=== PATIENT | female | born 1995 | race Caucasian/White ===

== ENCOUNTER → 2017-06-24 | Outpatient (CLI) | payer MEDICAID ==
[~2017-06-24] MED LIST: BACTRIM DS 8001 TA1 PO; BACTRIM DS 8001 TAB PO; IBU800 MG PO; KEFLEX 500MG.500 MG PO; KEFLEX500 M1 PO; MOTRIN400 MG PO; NOMEDS XX
[2017-06-24 11:25] LABS: HEMOGLOBIN 13.4 g/dL (12.2-16.2); LYMPH # 2.3 K/mm3 (0.7-4.5); LYMPH % 22.9 % (10-50.0)
[2017-06-24 12:44] LABS: ABO BLOOD TYPE A
[2017-06-24 12:45] LABS: RH BLOOD TYPE POSITIVE
[2017-06-24 17:52] LABS: AMPHETAMINES/METAMPHETAMINES NEGATIVE ng/mL (<1000)
[2017-06-25 08:42] LABS: HIV Screen 4th Generation wRfx Non Reactive (Non Reactive); Rapid Plasma Reagin, Quant Non Reactive (NonRea<1:1); Rubella Antibodies, IgG 4.96 index (Immune >0.99)
[2017-06-25 09:37] LABS: HBsAg Screen Negative (Negative)
[2017-06-27 03:37] LABS: Lead, Blood (Adult) None Detected ug/dL (0-19)
== END ==
LOC: LAB 10:35
PROVIDERS: Obstetrics & Gynecology
DX: Z36 Encounter for antenatal screening of mother (principal); Z34.01 Encounter for supervision of normal first pregnancy, first trimester; Z77.011 Contact with and (suspected) exposure to lead; Z04.8 Encounter for examination and observation for other specified reasons
CPT/HCPCS: G0432

== ENCOUNTER 2017-08-17 22:37 | Emergency (ER) | payer MEDICAID ==
[~2017-08-17] VITALS: Ht 171.4 cm; Wt 104.3 kg
[2017-08-17 23:12] LABS: URINE BILIRUBIN - DIPSTICK NEGATIVE (NEG); URINE BLOOD NEGATIVE (NEG)
--- NOTE | 2017-08-17 23:55 | Emergency Room Report ---
History of Present Illness Time Seen by [id number] Presenting Problem in Triage Pt arrived:Walked Presenting Problem:C/O SEVERE ABDOMINAL PAIN X 1 WEEK. PATIENT IS 19 WEEKS WITH TWINS NOW STATES SHE HASNT FELT ANY MOVEMENT FOR 3-4 DAYS. NOW WITH C/O BACK PAIN ONLY AND NO BLEEDING /DISCHARGE Onset of symptoms date/time:/ or onset unknown for:MEDICAL HX UNKNOWN Treatment Prior to Arrival: [employer] Provided by: Sepsis Risk Assessment: Temp: 98.8 B/P: 130/76 MAP: 93 Pulse: 105 Resp: 16 Recent fever? N Clinical Suspician of Infection? N Mental Status: 1 - Regular (Normal Baseline) Sepsis Risk:Possible Sepsis Risk Have you (or family members/close friends) recently traveled outside the [place]? N If Yes, where/when: Have you had exposure to infectious disease within the past month? N TB? Other? Specify: Source patient, RN notes reviewed, family, old records Exam Limitations no limitations Comment pt with abd pain earlier in week but dec at this time - she has no mov reported over the last few days but no fever or vomiting and no vag bleeding Cardiac Chest Pain Chest pain indicative of cardiac No Timing/Duration this evening Severity moderate ALLERGIES Coded Allergies: No Known Allergies (07/16/16) Home Medications Reported Medications No Home Medications (NO HOME MEDICATIONS) 1 EACH XX ONCE MULTIVIT-MIN W/FE-FA ( Multivitamin Tablet) 1 TAB PO DAILY History Medical History General CAD? No Angina: No IN: No Hypertension? Yes Hyperlipidemia? No CHF? No DVT? No PE? No COPD? No Asthma? Yes Anemia? No GERD? Yes Gastric ulcers? No GI Bleed? No Hernia? No Thyroid Problems? No Hypothyroidism? No CVA? No Seizures? No Diabetes? No Renal Insuffiency? No End Stage Renal Disease? No UTI? Yes Stones? No BPH? No GB Disease: No Nephritic Syndrome? No Asplenia? No Hepatitis? No Sickle Cell Disease? No Arthritis? No Migraines? No Cataracts? No Glaucoma? No MRSA? No HIV? No TB? No Anxiety? No Depression? No Cancer? No More? Yes Additional hx: BIPOLAR Immunization Hx DT/Tetanus Unknown Flu NEVER Pneumonia NEVER Surgical Hx Previous Surgery?Y TONSILLECTOMY 03/2008 [employer]ER Hx LMP 5 Months Ago Est.Due Date 01/19/[address] TAYLOR Family History Family Hx Diabetes Yes CAD Yes Hypertension Yes Hyperlipidemia Yes Cancer Yes TB No Social History Smoking Hx Smoker: Never Smoker Tobacco: No Alcohol Alcohol: No Drugs none Review of Systems All Other Systems Reviewed and Negative Constitutional denies fever Eyes denies drainage ENT denies: ear discharge, epistaxis, throat pain. Respiratory denies cough, denies shortness of breath, denies wheezing Cardiovascular denies chest pain, denies palpitations, denies syncope Gastrointestinal denies abdominal pain, denies diarrhea, denies vomiting Genitourinary see HPI. denies: abnormal vaginal bleeding, dysuria, frequency, hesitancy, hematuria. Musculoskeletal denies back pain, denies joint pain, denies joint swelling, denies neck pain Skin denies rash Psychiatric/Neurological denies headache, denies seizure Physical Exam Vital Signs Vital Signs Date Time Temp Pulse Resp B/P Pulse O2 O2 Flow FiO2 Ox Delivery Rate 08/18 0003 98.8 108 18 128/77 99 08/17 2341 105 16 130/76 99 08/17 2244 98.8 114 20 131/75 99 - WBC >12,000 or <4,000 or 10% bands? 2 or more SIRS Criteria Met? B/P:128/77 MAP:93 Creatinine >2.0? UA output<0.5ml/kg/hr for 2 hrs? Platelet count >100,000? Lactate >2.0mmol/1? INR >1.2 or PTT > than 60 sec? Evidence of Organ Dysfunction? Provider documented clinical suspician of infection? N Sepsis Criteria Count: 2 Sepsis Risk: Possible Sepsis Risk General Appearance no apparent distress Eye Exam - bilateral eye PERRL, bilateral eye EOMI Ear, Nose, Throat normal ENT inspection Neck supple Respiratory Status No: respiratory distress. Lung Sounds bilateral: lungs clear. Cardiovascular regular rate/rhythm, no murmur Peripheral Pulses Pulses normal Yes Gastrointestinal soft Extremities normal inspection Strength 4 Upper Ext (L), 4 Upper Ext (R), 4 Lower Ext (L), 4 Lower Ext (R) Neurologic alert, supervisor picking crew II-XII nml as tested, no motor/sensory deficits Reflexes Reflexes normal No Mental status normal mood/affect Skin intact Medical Decision Making LABS/Meds/Orders Pt receiving controlled substance in ED? No Results/Orders Laboratory Tests 08/17/17 2300: Urine Color YELLOW, Urine Appearance SL CLOUDY, Urine pH 6.0, Ur Specific [place] >= 1.030, Urine Protein NEGATIVE, Urine Ketones TRACE H, Urine Blood NEGATIVE, Urine Nitrate NEGATIVE, Urine Bilirubin NEGATIVE, Urine Urobilinogen 1.0, Ur Leukocyte Esterase NEGATIVE, Urine WBC OCC, Ur Squamous Epith Cells 10- 20, Urine Mucus 4+, Urine Glucose TRACE H Orders Procedure Date/time Status URINALYSIS/COMPLETE 08/17 2256 Complete Departure Departure Time of Disposition 2352 Disposition DC Home or Self Care(routine) Clinical Impression Primary Impression: Qualifiers: Weeks of gestation: 17 weeks Qualified Code: Z3A.17 - 17 weeks gestation of Condition STABLE Referrals Manish KIRKLAND,Arian Gerber discussed with dr james Patient Instructions DI for -- Discomforts and Remedies Additional Instructions see pcp for follow up Discharge Counseling Counseled pt/family regarding diagnosis, test results, follow up needs ED Critical Care Critical Care No at 0025
--- NOTE | 2017-08-17 23:55 | Emergency Room Report ---
History of Present Illness Time Seen by [id number] Presenting Problem in Triage Pt arrived:Walked Presenting Problem:C/O SEVERE ABDOMINAL PAIN X 1 WEEK. PATIENT IS 19 WEEKS WITH TWINS NOW STATES SHE HASNT FELT ANY MOVEMENT FOR 3-4 DAYS. NOW WITH C/O BACK PAIN ONLY AND NO BLEEDING /DISCHARGE Onset of symptoms date/time:/ or onset unknown for:MEDICAL HX UNKNOWN Treatment Prior to Arrival: [employer] Provided by: Sepsis Risk Assessment: Temp: 98.8 B/P: 130/76 MAP: 93 Pulse: 105 Resp: 16 Recent fever? N Clinical Suspician of Infection? N Mental Status: 1 - Regular (Normal Baseline) Sepsis Risk:Possible Sepsis Risk Have you (or family members/close friends) recently traveled outside the [place]? N If Yes, where/when: Have you had exposure to infectious disease within the past month? N TB? Other? Specify: Source patient, RN notes reviewed, family, old records Exam Limitations no limitations Comment pt with abd pain earlier in week but dec at this time - she has no mov reported over the last few days but no fever or vomiting and no vag bleeding Cardiac Chest Pain Chest pain indicative of cardiac No Timing/Duration this evening Severity moderate ALLERGIES Coded Allergies: No Known Allergies (07/16/16) Home Medications Reported Medications No Home Medications (NO HOME MEDICATIONS) 1 EACH XX ONCE MULTIVIT-MIN W/FE-FA ( Multivitamin Tablet) 1 TAB PO DAILY History Medical History General CAD? No Angina: No NC: No Hypertension? Yes Hyperlipidemia? No CHF? No DVT? No PE? No COPD? No Asthma? Yes Anemia? No GERD? Yes Gastric ulcers? No GI Bleed? No Hernia? No Thyroid Problems? No Hypothyroidism? No CVA? No Seizures? No Diabetes? No Renal Insuffiency? No End Stage Renal Disease? No UTI? Yes Stones? No BPH? No GB Disease: No Nephritic Syndrome? No Asplenia? No Hepatitis? No Sickle Cell Disease? No Arthritis? No Migraines? No Cataracts? No Glaucoma? No MRSA? No HIV? No TB? No Anxiety? No Depression? No Cancer? No More? Yes Additional hx: BIPOLAR Immunization Hx DT/Tetanus Unknown Flu NEVER Pneumonia NEVER Surgical Hx Previous Surgery?Y TONSILLECTOMY 03/2008 [employer] Hx LMP 5 Months Ago Est.Due Date 01/19/[address] TAYLOR Family History Family Hx Diabetes Yes CAD Yes Hypertension Yes Hyperlipidemia Yes Cancer Yes TB No Social History Smoking Hx Smoker: Never Smoker Tobacco: No Alcohol Alcohol: No Drugs none Review of Systems All Other Systems Reviewed and Negative Constitutional denies fever Eyes denies drainage ENT denies: ear discharge, epistaxis, throat pain. Respiratory denies cough, denies shortness of breath, denies wheezing Cardiovascular denies chest pain, denies palpitations, denies syncope Gastrointestinal denies abdominal pain, denies diarrhea, denies vomiting Genitourinary see HPI. denies: abnormal vaginal bleeding, dysuria, frequency, hesitancy, hematuria. Musculoskeletal denies back pain, denies joint pain, denies joint swelling, denies neck pain Skin denies rash Psychiatric/Neurological denies headache, denies seizure Physical Exam Vital Signs Vital Signs Date Time Temp Pulse Resp B/P Pulse O2 O2 Flow FiO2 Ox Delivery Rate 08/18 0003 98.8 108 18 128/77 99 08/17 2341 105 16 130/76 99 08/17 2244 98.8 114 20 131/75 99 - WBC >12,000 or <4,000 or 10% bands? 2 or more SIRS Criteria Met? B/P:128/77 MAP:93 Creatinine >2.0? UA output<0.5ml/kg/hr for 2 hrs? Platelet count >100,000? Lactate >2.0mmol/1? INR >1.2 or PTT > than 60 sec? Evidence of Organ Dysfunction? Provider documented clinical suspician of infection? N Sepsis Criteria Count: 2 Sepsis Risk: Possible Sepsis Risk General Appearance no apparent distress Eye Exam - bilateral eye PERRL, bilateral eye EOMI Ear, Nose, Throat normal ENT inspection Neck supple Respiratory Status No: respiratory distress. Lung Sounds bilateral: lungs clear. Cardiovascular regular rate/rhythm, no murmur Peripheral Pulses Pulses normal Yes Gastrointestinal soft Extremities normal inspection Strength 4 Upper Ext (L), 4 Upper Ext (R), 4 Lower Ext (L), 4 Lower Ext (R) Neurologic alert, draw tender II-XII nml as tested, no motor/sensory deficits Reflexes Reflexes normal No Mental status normal mood/affect Skin intact Medical Decision Making LABS/Meds/Orders Pt receiving controlled substance in ED? No Results/Orders Laboratory Tests 08/17/17 2300: Urine Color YELLOW, Urine Appearance SL CLOUDY, Urine pH 6.0, Ur Specific [place] >= 1.030, Urine Protein NEGATIVE, Urine Ketones TRACE H, Urine Blood NEGATIVE, Urine Nitrate NEGATIVE, Urine Bilirubin NEGATIVE, Urine Urobilinogen 1.0, Ur Leukocyte Esterase NEGATIVE, Urine WBC OCC, Ur Squamous Epith Cells 10- 20, Urine Mucus 4+, Urine Glucose TRACE H Orders Procedure Date/time Status URINALYSIS/COMPLETE 08/17 2256 Complete Departure Departure Time of Disposition 2352 Disposition DC Home or Self Care(routine) Clinical Impression Primary Impression: Qualifiers: Weeks of gestation: 17 weeks Qualified Code: Z3A.17 - 17 weeks gestation of Condition STABLE Referrals Manish KIRKLAND,Arian Gerber discussed with dr james Patient Instructions DI for -- Discomforts and Remedies Additional Instructions see pcp for follow up Discharge Counseling Counseled pt/family regarding diagnosis, test results, follow up needs ED Critical Care Critical Care No at 0025
[2017-08-18 00:36] VITALS: BP 128/77
--- OUTSIDE RECORDS SUMMARY | 2017-09-10 01:33 | External Medical Summary Rpt ---
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 [facility] INC INC QUANTTATI VE COLONY COUNT URINE BASIC 26641 ARSH CABAN METABOLIC 7 [facility] PANEL INC INC CALCIUM TOTAL URINE 88535 [facility] DEPT VISUAL GLORIA GLORIA COLOR CMPRSN METHS BASIC 74787 [facility] METABOLIC 5 DIAGNOSTI DIAGNOSTI PANEL CS CS CALCIUM TOTAL GLUCOSE 22475 A C [place] QUANTITAT 5 LEONA BEAVER DONALD BLOOD PSC XCPT REAGENT STRIP IRON 10042 [facility] BINDING 5 DIAGNOSTI [place] [address] [facility] IRON 5 [place] [address] [facility] THYROID 5 DIAGNOSTI DIAGNOSTI STIMULATI CS NG HORMONE TSH TRANSFERA 40862 A C [place] SE 5 [facility] [place] JEA ASPARTATE PSC AMINO AST SGOT TRANSFERA 37453 A C A C SE 5 LEONA DELGADILLO MD ALANINE PSC PSC AMINO ALT SGPT OPHTH 58102 [facility] 5 ANG ANG XM&EVAL COMPRE NEW PT 1/> VST RADEX 43927 [place] [facility] 5 MEDICAL LUPE MINIMUM 2 IMAGING VIEWS ASS SMPL 93308 [facility] GUTIERREZ, REPAIR 5 [facility] SCALP/[facility] K/AX/CARLOS P T/TRUNK 2.6-7.5CM IM ADM 91362 [facility]AN PRQ ID 5 [facility] SUBQ/IM INC INC NJXS 1 VACCINE TDAP 07010 [facility] VACCINE 7 5 [facility] YRS/> IM INC INC IAADIADOO 67448 [facility] VERNELL 3 INFLUENZA ECG 70876 CRAWFORD AMINTA CRAWFORD AMINTA ROUTINE 2 ECG W/LEAST 12 LDS I&R ONLY SPMTRY 61490 RONY RONY W/VC 2 AMARIS AMARIS EXPIRATOR Y MOE W/WO MXML VOL VNTJ COLLECTIO 60894 [facility] N VENOUS 2 BLOOD VENIPUNCT URE GLUC BLD 98104 [facility] GLUC MNTR 2 DEV CLEARED FDA SPEC HOME USE DEMO&/CHELSI 31987 RONY RONY L OF PT 1 AMARIS AMARIS UTILIZ AERSL GEN/NEB/I NHLR/IP BRNCDILAT 75769 RONY RONY RSPSE 1 AMARIS AMARIS SPMTRY PRE&POST- BRNCDILAT ADMN LEVALBUTE J7614 RONY RONY ROL INHAL 1 AMARIS AMARIS NON-CP THRU DME U DOSE 0.5 MG SPMTRY 78287 RONY RONY W/VC 1 AMARIS AMARIS EXPIRATOR Y MOE W/WO MXML VOL VNTJ BRNCDILAT 33665 RONY RONY RSPSE 1 AMARIS AMARIS SPMTRY PRE&POST- BRNCDILAT ADMN PERCUTANE 85323 RONY RONY OUS TESTS 1 AMARIS AMARIS W/ALLERGE ALESIA EXTRACTS INTRACUTA 23282 RONY RONY NEOUS 1 AMARIS AMARIS TESTS W/ALLERGE [place]ESIA EXTRACTS DEMO&/CHELSI 42212 RONY RONY L OF PT 1 AMARIS AMARIS UTILIZ AERSL GEN/NEB/I NHLR/IP URINLS 74457 A C LEONA A DIP 1 [place] STICK/TAB PSC LET REAGNT NON-AUTO MICRSCPY THERAPEUT 03706 [facility]SH [facility] IC PX 1/> 0 [facility] AREAS INC INC EACH 15 MIN EXERCISES THERAPEUT 49952 ARSH CAB[facility] IC PX 1/> 0 [facility] AREAS INC INC EACH 15 MIN EXERCISES APPLICATI 14857 [facility] ON 0 [facility] MODALITY INC INC 1/> AREAS HOT/COLD PACKS APPL 84316 [facility] CAB[facility] MODALITY 0 [facility] 1/> AREAS INC INC ELEC STIMJ UNATTENDE D APPLICATI 17623 [facility] ON 0 [facility] MODALITY INC INC 1/> AREAS HOT/COLD PACKS THERAPEUT 05469 ARSH CABAN IC PX 1/> 0 [facility] AREAS INC INC EACH 15 MIN EXERCISES THERAPEUT 45228 ARSH AMERITOX IC PX 1/> 0 [facility] INC AREAS INC EACH 15 MIN EXERCISES APPLICATI 89588 [facility] CABAN ON 0 [facility] MODALITY INC INC 1/> AREAS HOT/COLD PACKS APPL 69016 ARSH AMERITOX MODALITY 0 [facility] INC 1/> AREAS INC ELEC STIMJ UNATTENDE D APPL 87037 [facility]SH CABAN MODALITY 0 [facility] 1/> AREAS INC INC ELEC STIMJ UNATTENDE D APPLICATI 88327 ARSH CABAN ON 0 [facility] MODALITY INC INC 1/> AREAS HOT/COLD PACKS THERAPEUT 75612 ARSH GARAY IC PX 1/> 0 [facility] INC AREAS INC EACH 15 MIN EXERCISES THERAPEUT 05352 ARSH CABAN IC PX 1/> 0 [facility] AREAS INC INC EACH 15 MIN EXERCISES APPLICATI 36000 [facility]SH CABAN ON 0 [facility] MODALITY INC INC 1/> AREAS HOT/COLD PACKS APPL 90437 ARSH CABAN MODALITY 0 [facility] 1/> AREAS INC INC ELEC STIMJ UNATTENDE D APPL 65386 ARSH CABAN MODALITY 0 [facility] 1/> AREAS INC INC ELEC STIMJ UNATTENDE D APPLICATI 01374 ARSH CABAN ON 0 [facility] MODALITY INC INC 1/> AREAS HOT/COLD PACKS THERAPEUT 88758 ARSH CABAN IC PX 1/> 0 [facility] AREAS INC INC EACH 15 MIN EXERCISES THERAPEUT 90298 ARSH CABAN IC PX 1/> 0 [facility] AREAS INC INC EACH 15 MIN EXERCISES APPLICATI 31354 [facility]SH CABAN ON 0 [facility] MODALITY INC INC 1/> AREAS HOT/COLD PACKS APPL 16653 ARSH CABAN MODALITY 0 [facility] 1/> AREAS INC INC ELEC STIMJ UNATTENDE D APPL 27197 ARSH CABAN MODALITY 0 [facility] 1/> AREAS INC INC ELEC STIMJ UNATTENDE D APPLICATI 53002 ARSH CABAN ON 0 [facility] MODALITY INC INC 1/> AREAS HOT/COLD PACKS THERAPEUT 26083 ARSH CABAN IC PX 1/> 0 [facility] AREAS INC INC [place]ACH [place] [address] ARSH CABAN 1/> AREAS 0 [facility] EACH 15 INC INC MIN NEUROMUSC REEDUCA PHYSICAL 91281 ARSH CABAN THERAPY 0 [facility] EVALUATIO INC INC N MRI 55391 [facility], SPINAL 0 [place] BEE A CANAL ORTHOPAED LUMBAR ICS PLC W/O CONTRAST MATERIAL RADEX 92162 [facility] EMRE, SPINE 0 MEDICAL DEREJE LUMBOSACR IMAGING AL ASSOCIATE MINIMUM 4 S VIEWS SCREENING 62956 Oskar FRANCOIS TEST 0 LEONA Ortiz PURE TONE PSC AIR ONLY FRAMES V2020 THANIA KUO, PURCHASES 0 VISION LUCIO A 1 VISN V2103 THANIA KUO, PLANO 0 VISION LUCIO A TO+/-4.00 D SPHER 0.12-2.00 D CYL EA OPHTH 89864 THANIA KUO MEDICAL 0 VISION LUCIO A XM&EVAL COMPRHNSV ESTAB PT 1/> FITTING 51893 THANIA KUO SPECTACLE 0 VISION LUCIO A S XCPT APHAKIA MONOFOCAL RADIOLOGI 20471 ARSH CABAN C 8 [facility] EXAMINATI INC INC ON KNEE 1/2 VIEWS RADIOLOGI 43496 ARSH CABAN C 8 [facility] EXAMINATI INC INC ON KNEE 3 VIEWS RADEX 02353 JEFFERY GIL, SPINE 8 DON R DON R LUMBOSACR AL MINIMUM 4 VIEWS IAADIADOO 27572 JEFFERY GIL, 8 DON R DON R STREPTOCO CCUS GROUP A IV NFUS 32457 [facility]SH [facility]AN THER 8 [facility] PROPH/DX INC INC EA HR TONSILLEC 46939 MARISSA ANN TOMY 8 CLARI Villa PRIMARY/S ECONDARY AGE 12/> IV NFS 38443 ASRH CABAN THER 8 [facility] PROPH/DX INC INC 1ST >1 HR ANESTHESI 65439 Oskar BLAND 8 ANESTH OTTO Rich INTRAORAL OF THE WITH BLUEGRASS BIOPSY NOS LEVEL III 02854 PATHOLOGY PATHOLOGY SURG 8 & & PATHOLOGY CYTOLOGY CYTOLOGY LAB LAB GROSS&TONO ROSCOPIC EXAM BLOOD 65004 ARSH CABAN COUNT 8 [facility] HEMOGLOBI INC INC N BLOOD 77243 [facility]SH CABAN COUNT 8 [facility] HEMATOCRI INC INC T TONSILLEC 282 [facility]SH CABAN DISHA 8 [facility] WITHOUT INC INC ADENOIDEC DISHA OTHER 86.04 LEONARDO OLPEZ & SANDY Hogan Encounters Encounter Start End Date Code Location Performer Type Date OFFICE 82430 [facility] OUTPATIEN 7 7 PHYSICIAN T VISIT S GROUP 15 MINUTES INITIAL 17405 [facility] PREVENTIV 7 7 PHYSICIAN E S GROUP MEDICINE NEW PT AGE [id number] [facility] ARSH - 7 7 [facility] OUTPATIEN INC T EMERGENCY 53915 [facility]SH 7 7 [facility] DEPARTMEN INC T VISIT LOW/MODER SEVERITY OFFICE 59813 A C [place] OUTPATIEN 7 7 [place] T VISIT PSC 15 MINUTES OFFICE 85923 [facility] T VISIT TH DEPT TH DEPT 10 GLORIA GLORIA MINUTES OFFICE 99830 A C [place] OUTPATIEN 5 5 LEONA BEAVER T VISIT PSC 15 MINUTES OFFICE 57520 A C [place] OUTPATIEN 5 5 [facility] BEAVER T VISIT PSC 15 MINUTES OFFICE 34562 A C [place] OUTPATIEN 5 5 [facility] BEAVER T VISIT PSC 15 MINUTES OFFICE 59372 A C [place] OUTPATIEN 5 5 [facility] BEAVER T VISIT PSC 15 MINUTES EMERGENCY 48223 ARSH GUTIERREZ, 5 5 [facility] T VISIT P LOW/MODER SEVERITY HOSPITAL ARSH - 5 5 [facility] OUTPATIEN INC T EMERGENCY 06341 ARSH 5 5 [facility] MODERATE SEVERITY OFFICE 04565 A C FIELD AMB OUTPATIEN 5 5 LEONA [place] T VISIT PSC 15 MINUTES Emergency LOC MUNIZRIS (ER) 3 17:35 3 19:22 [facility] Emergency LOC MUNIZRIS (ER) 3 17:56 3 19:53 [facility] OFFICE 66436 [facility] OUTPATIEN 3 3 PHYSICIAN T VISIT S GROUP 15 MINUTES OFFICE 17237 LEONA Schmitt OUTPATIEN 3 3 T VISIT 15 MINUTES OFFICE 17729 OSMIN VERNELL OSMIN VERNELL OUTPATIEN 3 3 T VISIT 15 MINUTES OFFICE 42702 OSMIN VERNELL OSMIN [place]NE[place] OUTPATIEN 3 3 T VISIT 15 MINUTES OFFICE 48631 RONY RONY OUTPATIEN 2 2 AMARIS AMARIS T VISIT 25 MINUTES OFFICE 97820 OSMIN VERNELL OSMIN [place]NE[place] OUTPATIEN 2 2 T VISIT 15 MINUTES OFFICE 79841 KALLIE KALLIE OUTPATIEN 2 2 ANTONIA ANTONIA T NEW 20 MINUTES OFFICE 84730 OSMIN VERNELL OSMIN VERNELL OUTPATIEN 2 2 T VISIT 15 MINUTES OFFICE 89807 RONY RONY OUTPATIEN 1 2 AMARIS AMARIS T VISIT 15 MINUTES OFFICE 14570 RONY RONY OUTPATIEN 1 2 AMARIS AMARIS T VISIT 25 MINUTES OFFICE 63706 Oskar SOLORIO VERNELL OUTPATIEN 1 1 [place] T VISIT PSC 15 MINUTES OFFICE 02895 RONY RONY OUTPATIEN 1 1 AMARIS AMARIS T VISIT 15 MINUTES OFFICE 16369 RONY RONY CONSULTAT 1 1 AMARIS AMARIS ION NEW/ESTAB PATIENT 60 MIN OFFICE 69381 Oskar Schmitt OUTPATIEN 1 1 [place] T VISIT PSC 15 MINUTES OFFICE 16843 ARSH CABAN OUTPATIEN 1 1 [facility] 10 MINUTES OFFICE 38610 Oskar Schmitt OUTPATIEN 1 1 [place] T VISIT PSC 15 MINUTES OFFICE 35026 Oskar Schmitt OUTPATIEN 1 1 [place] T VISIT PSC 15 MINUTES OFFICE 93934 [facility] OUTPATIEN 1 1 [place] VISIT [facility]THOPAED [facility] MINUTES OFFICE 16883 ARSH CABAN OUTPATIEN 1 1 [facility] 15 MINUTES OFFICE 22126 ARSH CABAN OUTPATIEN 1 1 [facility] 15 MINUTES OFFICE 96246 [facility] OUTPAT[place] 0 0 [place] T VISIT ORTHOPAED [facility] MINUTES OFFICE 52192 A Angel Schmitt OUTPATIEN 0 0 [facility] T VISIT PSC 15 MINUTES HOSPITAL [facility] - 0 0 [facility] OUTPATIEN INC T OFFICE 06182 [facility], OUTPATIEN 0 0 [place] BEE A T VISIT ORTHOPAED [facility] MINUTES OFFICE 43676 [facility], CONSULTAT 0 0 [place] BEE A ION ORTHOPAED NEW/ESTAB [facility] PATIENT 60 MIN OFFICE 77560 Oskar FRANCOIS OUTPATIEN 0 0 LEONA Ortiz T VISIT PSC 15 MINUTES HOSPITAL ARSH - 0 0 [facility] OUTPATIEN INC T OFFICE 34361 Oskar FRANCOISPATIEN 0 0 LEONA Sibley NEW 30 PSC MINUTES OFFICE 22793 JEFFERY GIL OUTPATIEN 9 9 DON R DON R T VISIT 15 MINUTES HOSPITAL ARSH - 8 8 [facility] OUTPATIEN INC T EMERGENCY 52403 ARSH 8 8 [facility] INC T VISIT MODERATE SEVERITY OFFICE 28667 JEFFERY GIL OUTPATIEN 8 8 DON R DON R T VISIT 15 MINUTES OFFICE 26574 JEFFERY GIL OUTPATIEN 8 8 DON R DON R T VISIT 15 MINUTES OFFICE 89458 JEFFERY GIL OUTPATIEN 8 8 DON R DON R T VISIT 15 MINUTES EMERGENCY 74854 ARSH 8 8 [facility] T VISIT LIMITED/M [facility]OR [facility] ARSH - 8 8 [facility] OUTPATIEN INC T EMERGENCY 92685 ARSH JAWDI, 8 8 [facility] T VISIT PROF SERV LOW/MODER SEVERITY PERIODIC 25795 [facility] PREVENTIV 8 8 [facility] EST [facility] PATIENT BANK ACCT [id number] HOSPITAL ARSH - 8 8 [facility] OUTPATIEN INC T OFFICE 97750 [facility] OUTPATIEN 8 8 [facility] T VISIT [facility] 15 BANK ACCT MINUTES OFFICE 20147 MARISSA ANN OUTPATIEN 8 8 CLARI Sibley NEW 30 MINUTES OFFICE 71338 JEFFERY GIL OUTPATIEN 8 8 DON R DON R T VISIT 15 MINUTES
--- OUTSIDE RECORDS SUMMARY | 2017-09-10 01:33 | External Medical Summary Rpt ---
Author Author , FRANKY Organization FRANKY Address Unknown Phone [email or web address] Care Team Providers Care Store Assistant Name Role Phone A Angel DELGADILLO MD PSC, A Unavailable Unavailable Angel DELGADILLO MD PSC [employer] [facility], Unavailable Unavailable [employer] [facility] Unavailable Unavailable LABORATORIES, [facility] Unavailable Unavailable LABORATORIES, [facility] RANGEL, RANGEL Unavailable Unavailable [facility] CRAWFORD AMINTA, CRAWFORD AMINTA Unavailable Unavailable CRAWFORD AMINTA, CRAWFORD AMINTA Unavailable Unavailable EMRE LUPE, Unavailable Unavailable EMRE LUPE LALO ANDREALAS, Unavailable Unavailable EMRE, DEREJE [facility] [place], [facility] [place] [facility] [place] KALLIE ANTONIA, Unavailable Unavailable KALLIE ANTONIA KALLIE ANTONIA, Unavailable Unavailable KALLIE ANTONIA FIELD AMB, FIELD AMB Unavailable Unavailable JR IGOR GUTIERREZZ, Unavailable Unavailable JR GAYLE GUTIERREZ HARPEL, HARPEL Unavailable Unavailable [facility] Unavailable Unavailable [facility], [facility] Unavailable Unavailable [facility], [facility] Unavailable [facility]available [facility], [facility] Unavailable Unavailable [facility] P, [facility] CASILLAS, CASILLAS Unavailable Unavailable KUO LUCIO A, Unavailable Unavailable KUO, LUCIO A [facility], Unavailable Unavailable [facility] CRUZ TRA, CRUZ TRA Unavailable Unavailable CRUZ, BEE A, CRUZ, Unavailable Unavailable BEE A JAWDI, ASHLEY J, JAWDI, Unavailable Unavailable ASHLEY J [facility], [facility] KILPELA, KILPELA Unavailable Unavailable KILPELA JEA, KILPELA Unavailable Unavailable CLARI SOUTH, Unavailable Unavailable CLARI ANN AMARIS, Unavailable Unavailable RONY AMARIS RONY AMARIS, Unavailable Unavailable RONY AMARIS LEONARDO DELGADO MD, Unavailable Unavailable OTTO BLACKMAN MD, Unavailable Unavailable OTTO AGUILAR OSMIN VERNELL, OSMIN VERNELL Unavailable Unavailable OSMIN VERNELL, OSMIN VERNELL Unavailable Unavailable [facility] Unavailable Unavailable [facility], [facility]Y [facility] Unavailable Unavailable LAB, [...] PHARMACY #[id number] # Unavailable Unavailable [id number], [facility] # [id number] [facility] Unavailable Unavailable DEPT [facility], [facility] DEPT [facility] Unavailable Unavailable DEPT [facility] DEPT [facility] [employer] [facility] DELGADILLO A, DELGADILLO A Unavailable Unavailable DELGADILLO A, DELGADILLO A Unavailable Unavailable Oskar DELGADILLO C, LEONA, Unavailable Unavailable A C Purpose Continuity of Care Document - 01-11-2008 through 2016 Problems Code Diagnosis DOS Provider Status [id number] REGULAR 08-08-2017 SCIF[facility] ASTIGMATISM BILATERAL [id number] TWIN 07-03-[address] [facility] DICHORIONIC GROUP /DIAMNIOTIC FIRST TRI O0971 SUP HIGH 06-24-[address] [facility] RISK PREG PHYSICIANS D/T SOCIAL GROUP PROBLEMS FIRST TRI [id number] TWIN 06-24-[address] [facility] PH[facility]ANS UNSPECIFIED GROUP NUMBER OF PLACENTA [id number] ENCOUNTER 06-24-[address] [facility] FORGE PRESS OPERATOR EXAM PHYSICIANS GENERAL RTN GROUP W/O ABNORMAL FIND Z048 ENCOUNTER 06-24-2017 [facility] OBSERVATION LABORATORIE OTHER SPEC S REASONS Z3401 ENCOUNTER 06-24-2017 [facility] NORMAL LABORATORIE FIRST PREG S 1 TRIMESTER Z36 ENCOUNTER 06-24-2017 [facility] SCREENING S OF MOTHER [id number] CONTACT 06-24-[address] [facility] WITH AND PHYSICIANS SUSPECTED GROUP EXPOSURE TO LEAD [id number] OTHER SPEC 06-17-2017 [facility] COND 1ST TRIMESTER D48439 TWIN 06-17-2017 [facility] DICHORIONIC INC /DIAMNIOTIC SECOND TRI R1031 RIGHT LOWER 06-17-2017 [facility] R110 NAUSEA 05-28-2017 A Angel DELGADILLO MD [facility] Z3A01 LESS THAN 8 05-28-2017 A Angel FERNANDEZ MD [facility] GESTATION OF Z3189 ENCOUNTER 05-26-2017 [facility] FOR OTHER DISTRICT PROCREATIVE HLTH DEPT MANAGEMENT GLORIA Z3201 ENCOUNTER 05-26-2017 [facility] DEPT TEST RESULT GLORIA POSITIVE J329 CHRONIC 10-06-2015 A Angel DELGADILLO SINUSITIS [facility] UNSPECIFIED I10 ESSENTIAL 09-28-2015 A Angel DELGADILLO PRIMARY [facility] HYPERTENSIO N 7823 EDEMA 07-05-2015 [facility] 7835 POLYDIPSIA 07-05-2015 A Angel DELGADILLO MD [facility] 7847 EPISTAXIS 07-05-2015 A Angel DELGADILLO MD [facility] 51975 POLYURIA 07-05-2015 A Angel DELGADILLO MD [facility] 1109 DERMATOPHYT 06-28-2015 A Angel DELGADILLO OSIS JEROD KIRKL[place] [facility] UNSPECIFIED SITE 3671 MYOPIA 03-10-2015 SCIFRES ANG 67362 OPEN WOUND 03-04-2015 [facility]ICAL WITHOUT IMAGING ASS MENTION COMP E8498 OTHER 03-04-2015 [facility] OF HOSPITAL P OCCURRENCE E8880 FALL 03-04-2015 [facility] AGAINST SHARP OBJECT E9208 ACC CAUSED 03-04-2015 [facility] SPEC [facility] P G INSTRUM/OBJ S V065 NEED 03-04-2015 [facility] INC VACCINATION W/TETANUS-D [facility] 7061 OTHER ACNE 01-07-2015 A Angel DELGADILLO MD [facility] 7856 ENLARGEMENT 01-07-2015 A Angel MARIN [facility] NODES 682.6 682.6 08-18-2013 Arsh CELLULITIS [facility] 19506 ACUT 02-18-[address] [facility] SUPPRATV PHYSICIANS OTITIS GROUP MEDIA W/O SPONT [...] RONY RHINITIS AMARIS DUE TO OTHER ALLERGEN 78997 EXTRINSIC 06-30-2012 RONY ASTHMA, AMARIS UNSPECIFIED 0743 HAND, FOOT, 06-11-2012 [facility] DISEASE 7827 SPONTANEOUS 04-28-2012 KALLIE ECCHYMOSES ANTONIA 6264 IRREGULAR 02-04-2012 OSMIN [facility] MENSTRUAL CYCLE 7060 ACNE 02-04-2012 [facility] [place] [address] EXTRINSIC 11-14-2011 RONY ASTHMA, AMARIS WITH EXACERBATIO N 6262 EXCESSIVE 08-08-2011 A Angel DELGADILLO OR FREQUENT PSC MENSTRUATIO N 4780 HYPERTROPHY 07-22-2011 RONY OF NASAL AMARIS TURBINATES V727 DIAGNOSTIC 06-11-2011 RONY SKIN AND AMARIS SENSITIZATI ON TESTS 7821 RASH AND 05-22-2011 A Angel NATION MD PSC NONSPECIFIC SKIN ERUPTION 6253 DYSMENORRHE 03-13-2011 [facility] 1121 CANDIDIASIS 03-06-2011 A Angel DELGADILLO OF VULVA PSC AND VAGINA 36130 OTHER 03-06-2011 A Angel DELGADILLO STOMATITIS PSC AND MUCOSITIS ULCERATIVE 7242 LUMBAGO 01-22-2011 [facility]OP[facility]EDIC S PLC 7840 HEADACHE 01-16-2011 [facility] 61828 SCOLIOSIS , 10-23-2010 [facility] IDIOPATHIC ORTHOPAEDIC S PLC 4619 ACUTE 10-09-2010 A Angel DELGADILLO SINUSITISMD PSC UNSPECIFIED V571 OTHER 07-02-2010 [facility] THERAPY INC 47213 CENTRAL 06-06-2010 A Angel DELGADILLO HEARING PSC LOSS 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 [facility] SP[facility] UNSPECIFIED ASSOCIATES 7820 DISTURBANCE 06-06-2010 [facility] OF SKIN [facility] SENSATION INC 3670 HYPERMETROP 04-06-2010 THANIA IA [facility] 4779 ALLERGIC 12-26-2009 A Angel DELGADILLO RHINITIS PSC CAUSE UNSPECIFIED 4610 ACUTE 02-08-2009 BHARATHI GIL SINUSITIS 7881 DYSURIA 02-08-2009 BRIANNE GIL 22572 PAIN IN 10-25-2008 [facility]INT[facility] LOWER LEG [facility] 87750 CONTUSION 10-25-2008 [facility] [facility] E8490 PLACE OF 10-25-2008 [facility] O[facility], MEDICAL HOME [facility] E8809 ACCIDENTAL 10-25-2008 [facility] FALL ON OR MEDICAL FROM OTHER IMAGING STAIRS OR ASSOCIATES STEPS 7245 UNSPECIFIED 10-17-2008 GIL, BACKACHE DON R 462 ACUTE 07-26-2008 GIL, PHARYNGITIS DON R V202 ROUTINE 06-29-2008 GIL, OR BRIANNE R CHILD HEALTH CHECK 6918 OTHER 05-27-2008 [facility] AND RELATED PROF SERV CONDITIONS 463 ACUTE 02-25-2008 [facility] TONSILLITIS [facility] 07272 CHRONIC 02-25-2008 AYSHA ANNILLITIS CLARI Villa 18282 HYPERTROPHY 02-25-2008 PATHOLOGY & OF TONSILS CYTOLOGY ALONE LAB 24375 OTHER 02-04-2008 SRIKANTH ANN INVOLVING HEAD AND [...] NT ET HI AN A IN C VA 00 09 0 No DA 40 -1 [...] -2 -[address] 76 NT ti HI 70 2- 2- 00 SI 72 ZE [...] MG CY TA #5 BL 91 ET HI 50 06 07 00 10 10 WA [...] method CHLAMYDIA AND GONORRHEA TESTING (08-30-2014 11:00) Lepidopterist: Rosanne Pearce MD FCAP Lab: [facility] Division of Laboratory Services Lab Address: [address] [place] [address], [address] [place] [address] 08-30-2014 11:00 am Specimen Collection Start Date/Time: Ergonomics Engineer: Specimen Richardson'patricia 09-05-2014 9:37 am Date/Time: Ordering Physician: [facility] 09-06-2014 8:44 am Results Rpt/Status Change Date/Time: [...] Procedures Procedure DOS Code Location Performer Comment [facility] [address] [facility] 7 XM&EVAL COMPRHNSV ESTAB PT 1/ [place] [address] [facility] 7 PHYSICIAN UTERUS 14 S GROUP WK TRANSABDL GESTAT CULTURE [address] [facility] CHLAMYDIA 7 PHYSICIAN ANY S GROUP SOURCE IADNA 86470 BIO BIO LESLEY 7 REFERNCE REFERNCE SPECIES LABORATOR LABORATOR AMPLIFIED IES IES PROBE TQ CYTP C/V 87387 BIO BIO AUTO THIN 7 REFERNCE REFERNCE LYR LABORATOR LABORATOR PREPJ SCR IES IES MNL RESCR PHYS IADNA 33309 BIO BIO HERPES 7 REFERNCE REFERNCE SOMPLX LABORATOR LABORATOR VIRUS IES IES AMPLIFIED PROBE TQ IADNA [address] [facility] NEISSERIA 7 PHYSICIAN S GROUP GONORRHOE AE DIRECT PROBE TQ IADNA 87985 BIO BIO NEISSERIA 7 REFERNCE REFERNCE LABORATOR LABORATOR GONORRHOE IES IES AE AMPLIFIED PROBE TQ IADNA NOS 49223 BIO BIO 7 REFERNCE REFERNCE AMPLIFIED LABORATOR LABORATOR PROBE TQ IES IES EACH ORGANISM IADNA 53951 BIO BIO CHLAMYDIA 7 REFERNCE REFERNCE LABORATOR LABORATOR TRACHOMAT IES IES IS AMPLIFIED PROBE TQ IADNA 29391 BIO BIO GARDNEREL 7 REFERNCE REFERNCE LA LABORATOR LABORATOR VAGINALIS IES IES QUANTIFIC ATION IADNA [address] [facility] HERPES 7 PHYSICIAN SIMPLX S GROUP VIRUS DIRECT PROBE TQ URINLS [address] [facility] CASILLAS DIP 7 PHYSICIAN STICK/TAB S GROUP LET REAGNT NON-AUTO MICRSCPY IADNA 79910 BIO BIO TRICHOMON 7 REFERNCE REFERNCE LABORATOR LABORATOR VAGINALIS IES IES AMPLIFIED PROBE TECH IADNA NOS 35537 BIO BIO 7 REFERNCE REFERNCE QUANTIFIC LABORATOR LABORATOR ATION IES IES EACH ORGANISM IAADIADOO [address] [facility] 7 PHYSICIAN TRICHOMON S GROUP VAGINALIS US PREG 71572 [facility] R[facility] UTERUS 7 MEDICAL REAL TIME IMAGING W/IMAGE ASS DCMTN TRANSVAG URNLS DIP 51657 [facility] 7 [facility] STICK/TAB INC INC LET REAGENT AUTO MICROSCOP Y BLOOD 58801 [facility] COUNT 7 [facility] COMPLETE INC INC AUTO&AUTO DIFRNTL WBC CULTURE 26637 [facility] BACTERIAL 7 [facility] INC INC QUANTTATI VE COLONY COUNT URINE BASIC 06531 [facility] METABOLIC 7 [facility] PANEL INC INC CALCIUM TOTAL URINE 59209 [facility] 7 [facility] TEST HLTH DEPT HLTH DEPT VISUAL GLORIA GLORIA COLOR CMPRSN METHS BASIC 27030 [facility] METABOLIC 5 DIAGNOSTI DIAGNOSTI PANEL CS CS CALCIUM TOTAL GLUCOSE 49616 A C KILPELA QUANTITAT 5 LEONA BEAVER DONALD BLOOD PSC XCPT REAGENT STRIP IRON 90221 [facility] BINDING 5 DIAGNOSTI [place] [address] [facility] IRON 5 [place] [address] [facility] THYROID 5 DIAGNOSTI DIAGNOSTI STIMULATI CS NG HORMONE TSH TRANSFERA 18116 A C KILPELA SE 5 LEONA [place]KL[place] JEA ASPARTATE PSC AMINO AST SGOT TRANSFERA 78057 A C A C SE 5 LEONA DELGADILLO MD ALANINE PSC PSC AMINO ALT SGPT OPHTH 04612 [facility] 5 ANG ANG XM&EVAL COMPRE NEW PT 1/> VST RADEX 49806 [place] EMRE HUMERUS 5 MEDICAL LUPE MINIMUM 2 IMAGING VIEWS ASS SMPL 80617 [facility] GUTIERREZ, REPAIR 5 [facility] SCALP/[facility] K/AX/CARLOS P T/TRUNK 2.6-7.5CM IM ADM 19348 [facility] PRQ ID 5 [facility] SUBQ/IM INC INC NJXS 1 VACCINE TDAP 10188 [facility] VACCINE 7 5 [facility] YRS/> IM INC INC IAADIADOO 45819 [facility] 3 INFLUENZA ECG 48808 CRAWFORD AMINTA CRAWFORD AMINTA ROUTINE 2 ECG W/LEAST 12 LDS I&R ONLY SPMTRY 55558 RONY RONY W/VC 2 AMARIS AMARIS EXPIRATOR Y MOE W/WO MXML VOL VNTJ COLLECTIO 62751 [facility] N VENOUS 2 BLOOD VENIPUNCT URE GLUC BLD 64930 [facility] GLUC MNTR 2 DEV CLEARED FDA SPEC HOME USE DEMO&/CHELSI 41848 RONY RONY L OF PT 1 AMARIS AMARIS UTILIZ AERSL GEN/NEB/I NHLR/IP BRNCDILAT 68481 RONY RONY RSPSE 1 AMARIS AMARIS SPMTRY PRE&POST- BRNCDILAT ADMN LEVALBUTE J7614 RONY RONY ROL INHAL 1 AMARIS AMARIS NON-CP THRU DME U DOSE 0.5 MG SPMTRY 56425 RONY RONY W/VC 1 AMARIS AMARIS EXPIRATOR Y MOE W/WO MXML VOL VNTJ BRNCDILAT 52973 RONY RONY RSPSE 1 AMARIS AMARIS SPMTRY PRE&POST- BRNCDILAT ADMN PERCUTANE 24622 RONY RONY OUS TESTS 1 AMARIS AMARIS W/ALLERGE ALESIA EXTRACTS INTRACUTA 98424 RONY RONY NEOUS 1 AMARIS AMARIS TESTS W/ALLERGE ALESIA EXTRACTS DEMO&/CHELSI 76508 RONY RONY L OF PT 1 AMARIS AMARIS UTILIZ AERSL GEN/NEB/I NHLR/IP URINLS 72258 A C LEONA A DIP 1 LEONA [place] STICK/TAB PSC LET REAGNT NON-AUTO MICRSCPY THERAPEUT 26158 [facility] IC PX 1/> 0 [facility] AREAS INC INC EACH 15 MIN EXERCISES THERAPEUT 12689 [facility] IC PX 1/> 0 [facility] AREAS INC INC EACH 15 MIN EXERCISES APPLICATI 20862 [facility] ON 0 [facility] MODALITY INC INC 1/> AREAS HOT/COLD PACKS APPL 99667 [facility] MODALITY 0 [facility] 1/> AREAS INC INC ELEC STIMJ UNATTENDE D APPLICATI 11019 [facility] ON 0 [facility] MODALITY INC INC 1/> AREAS HOT/COLD PACKS THERAPEUT 85728 [facility] IC PX 1/> 0 [facility] AREAS INC INC EACH 15 MIN EXERCISES THERAPEUT 15318 [facility] AMER[facility]OX IC PX 1/> 0 [facility] INC AREAS INC EACH 15 MIN EXERCISES APPLICATI 96423 [facility] ON 0 [facility] MODALITY INC INC 1/> AREAS HOT/COLD PACKS APPL 39099 [facility] MODALITY 0 [facility] INC 1/> AREAS INC ELEC STIMJ UNATTENDE D APPL 27726 [facility] MODALITY 0 [facility] 1/> AREAS INC INC ELEC STIMJ UNATTENDE D APPLICATI 22320 [facility] ON 0 [facility] MODALITY INC INC 1/> AREAS HOT/COLD PACKS THERAPEUT 67357 [facility] GARAY IC PX 1/> 0 [facility] INC AREAS INC EACH 15 MIN EXERCISES THERAPEUT 20557 [facility] IC PX 1/> 0 [facility] AREAS INC INC EACH 15 MIN EXERCISES APPLICATI 65838 [facility] ON 0 [facility] MODALITY INC INC 1/> AREAS HOT/COLD PACKS APPL 99411 [facility] MODALITY 0 [facility] 1/> AREAS INC INC ELEC STIMJ UNATTENDE D APPL 30214 [facility] MODALITY 0 [facility] 1/> AREAS INC INC ELEC STIMJ UNATTENDE D APPLICATI 46144 [facility] ON 0 [facility] MODALITY INC INC 1/> AREAS HOT/COLD PACKS THERAPEUT 09161 [facility] IC PX 1/> 0 [facility] AREAS INC INC EACH 15 MIN EXERCISES THERAPEUT 31915 [facility] IC PX 1/> 0 [facility] AREAS INC INC EACH 15 MIN EXERCISES APPLICATI 66325 [facility] ON 0 [facility] MODALITY INC INC 1/> AREAS HOT/COLD PACKS APPL 15777 [facility] MODALITY 0 [facility] 1/> AREAS INC INC ELEC STIMJ UNATTENDE D APPL 50227 [facility] MODALITY 0 [facility] 1/> AREAS INC INC ELEC STIMJ UNATTENDE D APPLICATI 89737 [facility] ON 0 [facility] MODALITY INC INC 1/> AREAS HOT/COLD PACKS THERAPEUT 13397 [facility] IC PX 1/> 0 [facility] AREAS INC INC [place]ACH [place] [address] [facility] 1/> AREAS 0 [facility] EACH 15 INC INC MIN NEUROMUSC REEDUCA PHYSICAL 45944 [facility] THERAPY 0 [facility] EVALUATIO INC INC N MRI 73359 [facility], SPINAL 0 [place] BEE A CANAL ORTHOPAED LUMBAR ICS PLC W/O CONTRAST MATERIAL RADEX 40565 [facility] EMRE, SPINE 0 MEDICAL DEREJE LUMBOSACR IMAGING AL ASSOCIATE MINIMUM 4 S VIEWS SCREENING 30901 Oskar FRANCOIS TEST 0 LEONA Ortiz PURE TONE PSC AIR ONLY FRAMES V2020 THANIA KUO, PURCHASES 0 VISION LUCIO A 1 VISN V2103 THANIA KUO, PLANO 0 VISION LUCIO A TO+/-4.00 D SPHER 0.12-2.00 D CYL EA OPHTH 38656 THANIA KUO MEDICAL 0 VISION LUCIO A XM&EVAL COMPRHNSV ESTAB PT 1/> FITTING 99693 THANIA KUO SPECTACLE 0 VISION LUCIO A S XCPT APHAKIA MONOFOCAL RADIOLOGI 38723 [facility] C 8 [facility] EXAMINATI INC INC ON KNEE 1/2 VIEWS RADIOLOGI 85555 [facility] C 8 [facility] EXAMINATI INC INC ON KNEE 3 VIEWS RADEX 82184 JEFFERY GIL, SPINE 8 DON R DON R LUMBOSACR AL MINIMUM 4 VIEWS IAADIADOO 84061 JEFFERY GIL, 8 DON R DON R STREPTOCO CCUS GROUP A IV NFUS 76611 [facility] THER 8 [facility] PROPH/DX INC INC EA HR TONSILLEC 11334 MARISSA ANN TOMY 8 CLARI Villa PRIMARY/S ECONDARY AGE 12/> IV NFS 59528 [facility] THER 8 [facility] PROPH/DX INC INC 1ST >1 HR ANESTHESI 53036 Oskar BLAND 8 ANESTH OTTO Rich INTRAORAL OF THE WITH BLUEGRASS BIOPSY NOS LEVEL III 39410 PATHOLOGY PATHOLOGY SURG 8 & & PATHOLOGY CYTOLOGY CYTOLOGY LAB LAB GROSS&TONO ROSCOPIC EXAM BLOOD 55491 [facility] COUNT 8 [facility] HEMOGLOBI INC INC N BLOOD 08507 [facility] COUNT 8 [facility] HEMATOCRI INC INC T TONSILLEC 282 [facility] DISHA 8 [facility] WITHOUT INC INC ADENOIDEC DISHA OTHER 86.04 LEONARDO LOPEZ & SANDY Hogan Encounters Encounter Start End Date Code Location Performer Type Date OFFICE [address] [facility] OUTPATIEN 7 7 PHYSICIAN T VISIT S GROUP 15 MINUTES INITIAL [address] [facility] PREVENTIV 7 7 PHYSICIAN E S GROUP MEDICINE NEW PT AGE 18-39YRS [facility] - 7 7 [facility] OUTPATIEN INC T EMERGENCY 14570 [facility] 7 7 [facility] DEPARTMEN INC T VISIT LOW/MODER SEVERITY OFFICE 48220 A C KILPELA OUTPATIEN 7 7 LEONA [place] T VISIT PSC 15 MINUTES OFFICE 25024 [facility] T VISIT TH DEPT TH DEPT 10 GLORIA GLORIA MINUTES OFFICE 97195 A C KILPELA OUTPATIEN 5 5 LEONA BEAVER T VISIT PSC 15 MINUTES OFFICE 75182 A C KILPELA OUTPATIEN 5 5 LEONA BEAVER T VISIT PSC 15 MINUTES OFFICE 83794 A C KILPELA OUTPATIEN 5 5 LEONA BEAVER T VISIT PSC 15 MINUTES OFFICE 70685 A C KILPELA OUTPATIEN 5 5 LEONA BEAVER T VISIT PSC 15 MINUTES EMERGENCY 31413 [facility] GUTIERREZ, 5 5 [facility] T VISIT P LOW/MODER SEVERITY HOSPITAL [facility] - 5 5 [facility] OUTPATIEN INC T EMERGENCY 73787 [facility] 5 5 [facility]IT MODERATE SEVERITY OFFICE 57458 A C FIELD AMB OUTPATIEN 5 5 LEONA KIRKLAND T VISIT PSC 15 MINUTES Emergency LOC MUNIZRIS (ER) 3 17:35 3 19:22 [facility] Emergency LOC MUNIZRIS (ER) 3 17:56 3 19:53 [facility] OFFICE [address] [facility] OUTPATIEN 3 3 PHYSICIAN T VISIT S GROUP 15 MINUTES OFFICE 40257 LEONA Schmitt OUTPATIEN 3 3 T VISIT 15 MINUTES OFFICE 46808 [facility] OUTPATIEN 3 3 T VISIT 15 MINUTES OFFICE 17998 [facility] VERNE[facility] OSMIN VERNELL OUTPATIEN 3 3 T VISIT 15 MINUTES OFFICE 75288 RONY RONY OUTPATIEN 2 2 AMARIS AMARIS T VISIT 25 MINUTES OFFICE 08097 [facility] OUTPATIEN 2 2 T VISIT 15 MINUTES OFFICE 39380 KALLIE KALLIE OUTPATIEN 2 2 ANTONIA ANTONIA T NEW 20 MINUTES OFFICE 69637 [facility] OUTPATIEN 2 2 T VISIT 15 MINUTES OFFICE 20440 RONY RONY OUTPATIEN 1 2 AMARIS AMARIS T VISIT 15 MINUTES OFFICE 27272 RONY RONY OUTPATIEN 1 2 AMARIS AMARIS T VISIT 25 MINUTES OFFICE 71532 Oskar SOLORIO VERNELL OUTPATIEN 1 1 LEONA [place] T VISIT PSC 15 MINUTES OFFICE 10687 RONY RONY OUTPATIEN 1 1 AMARIS AMARIS T VISIT 15 MINUTES OFFICE 24850 RONY RONY CONSULTAT 1 1 AMARIS AMARIS ION NEW/ESTAB PATIENT 60 MIN OFFICE 50672 Oskar Schmitt OUTPATIEN 1 1 LEONA [place] T VISIT PSC 15 MINUTES OFFICE 88386 [facility] OUTPATIEN 1 1 [facility] 10 MINUTES OFFICE 86788 [facility] Schmitt OUTPATIEN 1 1 LEONA [place] T VISIT PSC 15 MINUTES OFFICE 85758 Oskar Schmitt OUTPATIEN 1 1 LEONA [place] T VISIT PSC 15 MINUTES OFFICE 33117 [facility] OUTPAT[place] 1 1 [place] T VISIT [facility]OP[facility]ED 15 [facility] MINUTES OFFICE 88035 [facility] OUTPATIEN 1 1 [facility] 15 MINUTES OFFICE 46525 [facility] OUTPATIEN 1 1 [facility] 15 MINUTES OFFICE 26543 [facility] [place] [facility] MIN[facility]ES [facility] 17616 A Angel Schmitt OUTPATIEN 0 0 [place] T VISIT P[facility] 15 MINUTES [facility] - 0 0 [facility] T OFFICE 26834 [facility], [place] 0 0 [place] T VISIT ORTHOPAED 15 [facility] MINUT[facility] OFFICE 49512 [facility], CONS[place]AT 0 0 [place] BEE [place] I[place] ORTHOPAED NEW/ESTAB [facility] PATIENT 60 MIN OFFICE 85982 Oskar FRANCOIS OUTPATIEN 0 0 [facility] [place] T VISIT PSC 15 MINUTES [facility]OSPITAL [facility] - 0 0 [facility] T OFFICE 16685 Oskar FRANCOISPATIEN 0 0 [place] NEW 30 PSC MINUTES OFFICE 00062 JEFFERY GIL OUTPATIEN 9 9 DON R DON R T VISIT 15 MINUTES HOSPITAL [facility] - 8 8 [facility] T EMERGENCY 24141 [facility]SH 8 8 [facility] T VISIT MODERATE SEVERITY OFFICE 50917 JEFFERY IGL OUTPATIEN 8 8 DON R DON R T VISIT 15 MINUTES OFFICE 79162 JEFFERY GIL OUTPATIEN 8 8 DON R DON R T VISIT 15 MINUTES OFFICE 86037 JEFFERY GIL OUTPATIEN 8 8 DON R DON R T VISIT 15 MINUTES EMERGENCY 81259 ARSH 8 8 [facility] T VISIT LIMITED/M INOR [facility] ARSH - 8 8 [facility] OUTPATIEN INC T EMERGENCY 01232 ARSH JAWDI, 8 8 [facility] T VISIT PROF SERV LOW/MODER SEVERITY PERIODIC 94836 [facility] PREVENTIV 8 8 [facility] [place] [facility] MED EST [facility] PATIENT BANK ACCT [id number] ARSH - 8 8 [facility] T OFFICE 54745 [facility] OUTPATIEN 8 8 [facility] [place] T VISIT [facility] 15 BANK ACCT MINUTES OFFICE 43793 MARISSA ANN OUTPATIEN 8 8 CLARI [place] NEW 30 MINUTES OFFICE 76801 JEFFERY GIL OUTPATIEN 8 8 DON R DON R T VISIT 15 MINUTES
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
--- OUTSIDE RECORDS SUMMARY | 2017-09-10 01:37 | External Medical Summary Rpt ---
Author Author , FRANKY Medina FRANKY Address Unknown Phone [email or web address] Team Providers Care Farmer And Grazier Name Role Phone A Angel DELGADILLO MD PSC, A Unavailable Unavailable Angel DELGADILLO MD PSC [facility] [facility], Unavailable Unavailable [employer] [facility] Unavailable Unavailable LABORATORIES, [facility] Unavailable [facility]available LABORATORIES, [facility] CRAWFORD AMITNA, CRAWFORD AMINTA Unavailable Unavailable CRAWFORD AMINTA, CRAWFORD AMINTA Unavailable Unavailable EMRE LUPE, Unavailable Unavailable EMRE LUPE EMRE, DEREJE, Unavailable Unavailable EMRE, DEREJE [facility] Unavailable Unavailable [place], [facility] [place] [facility] [place] [place] [facility] KALLIE ANTONIA, Unavailable Unavailable KALLIE ANTONIA KALLIE ANTONIA, Unavailable Unavailable KALLIE ANTONIA FIELD AMB, FIELD AMB Unavailable Unavailable JR MATT ELZ, Unavailable Unavailable JR MATT ELZ HARPEL, HARPEL Unavailable Unavailable [employer] Unavailable Un[facility], [employer] [facility] [employer] Unavailable Un[facility], [employer] [facility] Unavailable Unavailable INC, [facility] Unavailable Unavailable H[facility]PITAL P, [facility] CASILLAS, CASILLAS Unavailable Unavailable LUCIO KUO A, Unavailable Unavailable SHIELA LUCIO A [facility], Unavailable Unavailable [facility] CRUZ TRA, CRUZ TRA Unavailable Unavailable CRUZ, BEE A, CRUZ, Unavailable Unavailable BEE A JAWDI, ASHLEY J, JAWDI, Unavailable Unavailable ASHLEY J [facility] Unavailable Unavailable [facility], [facility] KILPELA, KILPELA Unavailable Unavailable KILPELA JEA, KILPELA Unavailable Unavailable CHALOA CLARI ANN, Unavailable Unavailable CLARI ANN AMARIS, Unavailable Unavailable RONY AMARIS RONY AMARIS, Unavailable Unavailable RONY OTTO HODGES, Unavailable Unavailable OTTO AGUILAR VERNELL, OSMIN VERNELL Unavailable Unavailable OSMIN VERNELL, OSMIN VERNELL Unavailable Unavailable [facility] Unavailable Unavailable [facility] Unavailable [...] [facility]ACY [facility] # Unavailable Unavailable [id number], [facility] # [id number] [facility] Unavailable Unavailable DEPT [facility], [facility] DEPT [facility] Unavailable Unavailable DEPT [facility], [facility] DEPT [facility] DELGADILLO A, DELGADILLO A Unavailable Unavailable DELGADILLO A, DELGADILLO A Unavailable Unavailable Oskar DELGADILLO WRIGHT, Unavailable Unavailable A C Purpose Continuity of Care Document - 01-11-2008 through 2016 Problems Code Diagnosis DOS Provider Status [id number] REGULAR 08-08-2017 SCIFRES ASTIGMATISM BILATERAL [id number] TWIN 07-03-2017 [facility] DICHORIONIC GROUP /DIAMNIOTIC FIRST TRI O0971 SUP HIGH 06-24-2017 [facility] RISK PREG PHYSICIANS D/T SOCIAL GROUP PROBLEMS FIRST TRI [id number] TWIN 06-24-2017 [facility] UNSPECIFIED GROUP NUMBER OF PLACENTA [id number] ENCOUNTER 06-24-2017 [facility] BRADDISHER EXAM PHYSICIANS GENERAL RTN GROUP W/O ABNORMAL FIND Z048 ENCOUNTER 06-24-2017 [facility] OBSERVATION LABORATORIE OTHER SPEC S REASONS Z3401 ENCOUNTER 06-24-2017 [facility] SUPR[facility]N [facility] NORMAL LABORATORIE FIRST PREG S 1 TRIMESTER Z36 ENCOUNTER 06-24-2017 [facility] FOR [facility] LAB[facility]ATORIE SCREENING S OF MOTHER W07384 CONTACT 06-24-2017 [facility] WITH AND PHYSICIANS SUSPECTED GROUP EXPOSURE TO LEAD [id number] OTHER SPEC 06-17-2017 [facility] COND 1ST TRIMESTER L77129 TWIN 06-17-2017 [facility] DICHORIONIC INC /DIAMNIOTIC SECOND TRI R1031 RIGHT LOWER 06-17-2017 [facility] R110 NAUSEA 05-28-2017 A Angel DELGADILLO MD PSC Z3A01 LESS THAN 8 05-28-2017 A Angel FERNANDEZ MD [facility] GESTATION OF Z3189 ENCOUNTER 05-26-2017 [facility] FOR OTHER DISTRICT PROCREATIVE [facility] DEPT MANAGEMENT GLORIA Z3201 ENCOUNTER 05-26-2017 [facility] FOR DISTRICT HLTH DEPT TEST RESULT GLORIA POSITIVE J329 CHRONIC 10-06-2015 A Angel DELGADILLO SINUSITIS [facility] UNSPECIFIED I10 ESSENTIAL 09-28-2015 A Angel DELGADILLO PRIMARY [facility] HYPERTENSIO N 7823 EDEMA 07-05-2015 [facility] 7835 POLYDIPSIA 07-05-2015 A Angel DELGADILLO MD [facility] 7847 EPISTAXIS 07-05-2015 A Angel DELGADILLO MD [facility] 00530 POLYURIA 07-05-2015 A Angel DELGADILLO MD [facility] 1109 DERMATOPHYT 06-28-2015 A Angel DELGADILLO OSIS JEROD KIRKLAND [facility] UNSPECIFIED SITE 3671 MYOPIA 03-10-2015 SCIFRES ANG 56720 OPEN WOUND 03-04-2015 [place] [facility]ICAL WITHOUT IMAGING ASS MENTION COMP E8498 OTHER 03-04-[address] [facility] PL[address] OF HOSPITAL P OCCURRENCE E8880 FALL 03-04-2015 [facility] RESULT[address] [facility] IN [facility] P AGAINST SHARP OBJECT E9208 ACC CAUSED 03-04-2015 [facility] OT SPEC [facility] P G INSTRUM/OBJ S V065 NEED 03-04-2015 [facility] PROPHYLACTI [facility] INC VACCINATION W/TETANUS-D [facility] 7061 OTHER ACNE 01-07-2015 A Angel DELGADILLO MD PSC 7856 ENLARGEMENT 01-07-2015 A Angel MARIN LYMPH [facility] NODES 44541 ACUT 02-18-2013 [facility] SUPPRATV PHYSICIANS OTITIS GROUP MEDIA W/O [...] RONY RHINITIS AMARIS DUE TO OTHER ALLERGEN 92299 EXTRINSIC 06-30-2012 RONY ASTHMA, AMARIS UNSPECIFIED 0743 HAND, FOOT, 06-11-2012 OSMIN VERNELL AND MOUTH DISEASE 7827 SPONTANEOUS 04-28-2012 KALLIE ECCHYMOSES ANTONIA 6264 IRREGULAR 02-04-2012 OSMIN MATT MENSTRUAL CYCLE 7060 ACNE 02-04-2012 [place] [address] EXTRINSIC 11-14-2011 RONY ASTHMA, AMARIS WITH EXACERBATIO N 6262 EXCESSIVE 08-08-2011 A Angel DELGADILLO OR FREQUENT PSC MENSTRUATIO N 4780 HYPERTROPHY 07-22-2011 RONY OF NASAL AMARIS TURBINATES V727 DIAGNOSTIC 06-11-2011 RONY SKIN AND AMARIS SENSITIZATI ON TESTS 7821 RASH AND 05-22-2011 A Angel NATION MD PSC NONSPECIFIC SKIN ERUPTION 6253 DYSMENORRHE 03-13-2011 [facility] 1121 CANDIDIASIS 03-06-2011 A Angel DELGADILLO OF VULVA PSC AND VAGINA 72208 OTHER 03-06-2011 A Angel DELGADILLO STOMATITIS PSC AND MUCOSITIS ULCERATIVE 7242 LUMBAGO 01-22-2011 [facility]OP[facility]EDIC S PLC 7840 HEADACHE 01-16-2011 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 [facility] UNSPECIFIED ASSOCIATES 7820 DISTURBANCE 06-06-2010 [facility] SENSATION INC 3670 HYPERMETROP 04-06-2010 [facility] 4779 ALLERGIC 12-26-2009 A Angel DELGADILLO RHINITIS PSC CAUSE UNSPECIFIED 4610 ACUTE 02-08-2009 BHARATHI GIL SINUSITIS 7881 DYSURIA 02-08-2009 BRIANNE GIL 79795 PAIN IN 10-25-2008 [place] JOINT, MEDICAL LOWER LEG [facility] 59952 CONTUSION 10-25-2008 [place] [facility] E8490 PLACE OF 10-25-2008 [place] OCCURRENCE, MEDICAL HOME IMAG[facility] E8809 ACCIDENTAL 10-25-2008 [place] FALL ON OR MEDICAL FROM OTHER IMAGING STAIRS OR ASSOCIATES STEPS 7245 UNSPECIFIED 10-17-2008 GIL, BACKACHE DON R 462 ACUTE 07-26-2008 GIL, PHARYNGITIS DON R V202 ROUTINE 06-29-2008 GIL, INFANT OR DON R CHILD HEALTH CHECK 6918 OTHER 05-27-2008 [facility] REL[facility] PROF SERV CONDITIONS 463 ACUTE 02-25-2008 [facility] 71811 CHRONIC 02-25-2008 MARIS[facility] TONSILLITIS CLARI Allen 61250 HYPERTROPHY 02-25-2008 PATHOLOGY & OF TONSILS CYTOLOGY ALONE LAB 26034 OTHER 02-04-2008 MARISSA SYMPTOMS CLARI Allen INVOLVING [...] -2 -[address] 76 NT ti NM 70 2- 2- 00 SI 72 ZE [...] CY MG #[address] ET NM 50 06 07 00 10 10 WA [...] Procedures Procedure DOS Code Location Performer Comment [facility] 24125 SCIFRES SCIFRES MEDICAL 7 XM&[place] [address] H HARPEL 7 PHYSICIAN UTERUS 14 S GROUP WK TRANSABDL GESTAT IADNA 25044 BIO BIO TRICHOMON 7 REFERNCE REFERNCE LABORATOR LABORATOR VAGINALIS IES IES AMPLIFIED PROBE TECH IADNA NOS 54231 BIO BIO 7 REFERNCE REFERNCE QUANTIFIC LABORATOR LABORATOR ATION IES IES EACH ORGANISM IAADIADOO 72261 [facility] HARPEL 7 PHYSICIAN TRICHOMON S GROUP VAGINALIS IADNA 45370 BIO BIO HERPES 7 REFERNCE REFERNCE SOMPLX LABORATOR LABORATOR VIRUS IES IES AMPLIFIED PROBE TQ IADNA 27465 [facility] NEISSERIA 7 PHYSICIAN S GROUP GONORRHOE AE DIRECT PROBE TQ IADNA 36167 BIO BIO NEISSERIA 7 REFERNCE REFERNCE LABORATOR LABORATOR GONORRHOE IES IES AE AMPLIFIED PROBE TQ IADNA NOS 03317 BIO BIO 7 REFERNCE REFERNCE AMPLIFIED LABORATOR LABORATOR PROBE TQ IES IES EACH ORGANISM IADNA 63933 BIO BIO CHLAMYDIA 7 REFERNCE REFERNCE LABORATOR LABORATOR TRACHOMAT IES IES IS AMPLIFIED PROBE TQ IADNA 32426 BIO BIO GARDNEREL 7 REFERNCE REFERNCE LA LABORATOR LABORATOR VAGINALIS IES IES QUANTIFIC ATION IADNA 70948 [facility] HERPES 7 PHYSICIAN SIMPLX S GROUP VIRUS DIRECT PROBE TQ URINLS 05984 [facility] CASILLAS DIP 7 PHYSICIAN STICK/TAB S GROUP LET REAGNT NON-AUTO MICRSCPY CULTURE 83054 [facility] HARPEL CHLAMYDIA 7 PHYSICIAN ANY S GROUP SOURCE IADNA 65785 BIO BIO LESLEY 7 REFERNCE REFERNCE SPECIES LABORATOR LABORATOR AMPLIFIED IES IES PROBE TQ CYTP C/V 52758 BIO BIO AUTO THIN 7 REFERNCE REFERNCE LYR LABORATOR LABORATOR PREPJ SCR IES IES MNL RESCR PHYS CULTURE 23145 [facility] BACTERIAL 7 [facility] INC INC QUANTTATI VE COLONY COUNT URINE BASIC 75482 [facility] METABOLIC 7 [facility] PANEL INC INC CALCIUM TOTAL US PREG 94802 [facility] UTERUS 7 [facility] REAL TIME INC INC W/IMAGE DCMTN TRANSVAG URNLS DIP 63463 [facility] 7 [facility] STICK/TAB INC INC LET REAGENT AUTO MICROSCOP Y BLOOD 65308 [facility] COUNT 7 [facility] COMPLETE INC INC AUTO&AUTO DIFRNTL WBC URINE 83535 [facility] DEPT HLTH DEPT VISUAL GLORIA GLORIA COLOR CMPRSN METHS BASIC 08262 [facility] METABOLIC 5 DIAGNOSTI DIAGNOSTI [place] [address] [facility] IRON 5 [place] [address] [facility] THYROID 5 DIAGNOSTI DIAGNOSTI STIMULATI CS NG HORMONE TSH TRANSFERA 07252 A C KILPELA SE 5 [facility] [place] JEOskar ASPARTATE PSC AMINO AST SGOT TRANSFERA 53574 A C A C SE 5 LEONA DELGADILLO MD ALANINE PSC PSC AMINO ALT SGPT GLUCOSE 44353 A C KILPELA QUANTITAT 5 [facility] JEOskar DONALD BLOOD PSC XCPT REAGENT STRIP IRON 72217 [facility] BINDING 5 DIAGNOSTI DIAGNOSTI CAPACITY BANNER OPHTH 22906 [facility] 5 ANG ANG XM&EVAL COMPRE NEW PT 1/> VST RADEX 00520 [place] EMRE HUMERUS 5 MEDICAL LUPE MINIMUM 2 IMAGING VIEWS ASS IM ADM 34929 [facility] PRQ ID 5 [facility] SUBQ/IM INC INC NJXS 1 VACCINE TDAP 26422 [facility] VACCINE 7 5 [facility] YRS/> IM INC INC SMPL 91833 [facility] GUTIERREZ, REPAIR 5 [facility] K/AX/CARLOS P T/TRUNK 2.6-7.5CM IAADIADOO 30288 OSMIN ALVARENGA VERNELL 3 INFLUENZA ECG 75402 CRAWFORD AMINTA CRAWFORD AMINTA ROUTINE 2 ECG W/LEAST 12 LDS I&R ONLY SPMTRY 81732 RONY RONY W/VC 2 AMARIS AMARIS EXPIRATOR Y MOE W/WO MXML VOL VNTJ GLUC BLD 82310 OSMIN ALVARENGA VERNELL GLUC MNTR 2 DEV CLEARED FDA SPEC HOME USE COLLECTIO 11681 OSMIN ALVARENGA VERNELL N VENOUS 2 BLOOD VENIPUNCT URE DEMO&/CHELSI 95152 RONY RONY L OF PT 1 AMARIS AMARIS UTILIZ AERSL GEN/NEB/I NHLR/IP BRNCDILAT 32025 RONY RONY RSPSE 1 AMARIS AMARIS SPMTRY PRE&POST- BRNCDILAT ADMN LEVALBUTE J7614 RONY RONY ROL INHAL 1 AMARIS AMARIS NON-CP THRU DME U DOSE 0.5 MG SPMTRY 96669 RONY RONY W/VC 1 AMARIS AMARIS EXPIRATOR Y MOE W/WO MXML VOL VNTJ BRNCDILAT 71282 RONY RONY RSPSE 1 AMARIS AMARIS SPMTRY PRE&POST- BRNCDILAT ADMN DEMO&/CHELSI 35169 RONY RONY L OF PT 1 AMARIS AMARIS UTILIZ AERSL GEN/NEB/I NHLR/IP PERCUTANE 73242 ROYN RONY OUS TESTS 1 AMARIS AMARIS W/ALLERGE ALESIA EXTRACTS INTRACUTA 55585 RONY RONY NEOUS 1 AMARIS AMARIS TESTS W/ALLERGE ALESIA EXTRACTS URINLS 29250 A C LEONA A DIP 1 [place] STICK/TAB PSC LET REAGNT NON-AUTO MICRSCPY THERAPEUT 32553 [facility] IC PX 1/> 0 [facility] AREAS INC INC EACH 15 MIN EXERCISES APPL 25023 [facility] MODALITY 0 [facility] 1/> AREAS INC INC ELEC STIMJ UNATTENDE D THERAPEUT 04050 [facility] IC PX 1/> 0 [facility] AREAS INC INC EACH 15 MIN EXERCISES APPLICATI 91420 [facility] ON 0 [facility] MODALITY INC INC 1/> AREAS HOT/COLD PACKS THERAPEUT 57768 [facility] IC PX 1/> 0 [facility] AREAS INC INC EACH 15 MIN EXERCISES APPLICATI 49708 [facility] ON 0 [facility] MODALITY INC INC 1/> AREAS HOT/COLD PACKS APPL 62330 [facility] MODALITY 0 [facility] INC 1/> AREAS INC ELEC STIMJ UNATTENDE D THERAPEUT 10245 [facility] CHAMBERLAINERITOX IC PX 1/> 0 [facility] INC AREAS INC EACH 15 MIN EXERCISES APPLICATI 49576 [facility] ON 0 [facility] MODALITY INC INC 1/> AREAS HOT/COLD PACKS APPLICATI 83819 [facility] ON 0 [facility] MODALITY INC INC 1/> AREAS HOT/COLD PACKS THERAPEUT 74478 [facility] IC PX 1/> 0 [facility] INC AREAS INC EACH 15 MIN EXERCISES APPL 24663 [facility] MODALITY 0 [facility] 1/> AREAS INC INC ELEC STIMJ UNATTENDE D APPL 31944 [facility] MODALITY 0 [facility] 1/> AREAS INC INC ELEC STIMJ UNATTENDE D APPLICATI 17845 [facility] ON 0 [facility] MODALITY INC INC 1/> AREAS HOT/COLD PACKS THERAPEUT 21333 [facility] IC PX 1/> 0 [facility] AREAS INC INC EACH 15 MIN EXERCISES THERAPEUT 26379 [facility] IC PX 1/> 0 [facility] AREAS INC INC EACH 15 MIN EXERCISES APPLICATI 98100 [facility] ON 0 [facility] MODALITY INC INC 1/> AREAS HOT/COLD PACKS APPL 64836 [facility] MODALITY 0 [facility] 1/> AREAS INC INC ELEC STIMJ UNATTENDE D APPL 28444 [facility] MODALITY 0 [facility] 1/> AREAS INC INC ELEC STIMJ UNATTENDE D APPLICATI 78799 [facility] ON 0 [facility] MODALITY INC INC 1/> AREAS HOT/COLD PACKS THERAPEUT 70864 [facility] IC PX 1/> 0 [facility] AREAS INC INC EACH 15 MIN EXERCISES THERAPEUT 08164 [facility]AN IC PX 1/> 0 [facility] AREAS INC INC EACH 15 MIN EXERCISES APPLICATI 01159 [facility] ON 0 [facility] MODALITY INC INC 1/> AREAS HOT/COLD PACKS APPL 64562 [facility] MODALITY 0 [facility] 1/> AREAS INC [place] [address] [facility] 1/> AREAS 0 [facility] EACH 15 INC INC MIN NEUROMUSC REEDUCA PHYSICAL 00208 [facility] THERAPY 0 [facility] EVALUATIO INC INC N MRI 80979 [facility], SPINAL 0 [place] BEE A CANAL ORTHOPAED LUMBAR ICS PLC W/O CONTRAST MATERIAL SCREENING 91953 Oskar FRANCOIS TEST 0 LEONA Ortiz PURE TONE PSC AIR ONLY RADEX 59291 [facility] ANDREA SPINE 0 MEDICAL DEREJE LUMBOSACR IMAGING AL ASSOCIATE MINIMUM 4 S VIEWS OPHTH 63189 THANIA KUO MEDICAL 0 VISION LUCIO A XM&EVAL COMPRHNSV ESTAB PT 1/> FRAMES V2020 THANIA KUO PURCHASES 0 VISION LUCIO A FITTING 40675 THANIA KUO, SPECTACLE 0 VISION LUCIO A S XCPT APHAKIA MONOFOCAL 1 VISN V2103 THANIA KUO PLANO 0 VISION LUCIO A TO+/-4.00 D SPHER 0.12-2.00 D CYL EA RADIOLOGI 52631 [place] Angel ANDREA 8 MEDICAL DEREJE EXAMINATI IMAGING ON KNEE ASSOCIATE 1/2 VIEWS S RADIOLOGI 63443 [place] Angel ANDREA 8 MEDICAL DEREJE EXAMINATI IMAGING ON KNEE 3 ASSOCIATE VIEWS S RADEX 33215 JEFFERY GIL, SPINE 8 DON R DON R LUMBOSACR AL MINIMUM 4 VIEWS IAADIADOO 17015 JEFFERY GIL 8 DON R DON R STREPTOCO CCUS GROUP A IV NFUS 74848 [facility] THER 8 [facility] PROPH/DX INC INC EA HR BLOOD 46354 [facility] COUNT 8 [facility] HEMATOCRI INC INC T LEVEL III 93973 PATHOLOGY PATHOLOGY SURG 8 & & PATHOLOGY CYTOLOGY CYTOLOGY LAB LAB GROSS&TONO ROSCOPIC EXAM ANESTHESI 20298 PATI AGUILAROskra 8 ANESTH OTTO Rich INTRAORAL OF THE WITH BLUEGRASS BIOPSY NOS [place] NFS 70869 [facility] THER 8 [facility] PROPH/DX INC INC 1ST >1 HR TONSILLEC 50115 [facility] DISHA 8 [facility] PRIMARY/S INC INC ECONDARY AGE 12/> BLOOD 56925 [facility] COUNT 8 [facility] HEMOGLOBI INC INC N TONSILLEC 282 [facility] DISHA 8 [facility] WITHOUT INC INC ADENOIDEC DISHA Encounters Encounter Start End Date Code Location Performer Type Date OFFICE 39736 [facility] HARPEL OUTPATIEN 7 7 PHYSICIAN T VISIT S GROUP 15 [facility]UT[facility]IAL 35663 [facility]IC[facility] E S GROUP MEDICINE NEW PT AGE 18-39YRS EMERGENCY 91145 [facility] 7 7 [facility] DEPARTMEN INC T VISIT LOW/MODER SEVERITY HOSPITAL [facility] - 7 7 [facility] OUTPATIEN INC T OFFICE 87710 A C KILPELA OUTPATIEN 7 7 [place] T VISIT PSC 15 MINUTES OFFICE 60228 [facility] T VISIT [facility] DEPT [facility] DEPT 10 GLORIA GLORIA MINUTES OFFICE 50927 A C KILPELA OUTPATIEN 5 5 LEONA BEAVER T VISIT PSC 15 MINUTES OFFICE 56206 A C KILPELA OUTPATIEN 5 5 [facility] BEAVER T VISIT PSC 15 MINUTES OFFICE 05144 A C KILPELA OUTPATIEN 5 5 [facility]ONA BEAVER T VISIT PSC 15 MINUTES OFFICE 82706 A C KILPELA OUTPATIEN 5 5 LEONA BEAVER T VISIT PSC 15 MINUTES EMERGENCY 83845 [facility] GUTIERREZ, 5 5 [facility] T VISIT P LOW/MODER SEVERITY EMERGENCY 15707 [facility] 5 5 [facility] DEPARTMEN INC T VISIT MODERATE SEVERITY HOSPITAL [facility] - 5 5 [facility] OUTPATIEN INC T OFFICE 87719 A Angel FIELD AMB OUTPATIEN 5 5 [place] T VISIT PSC 15 MINUTES OFFICE 22204 [facility] OUTPATIEN 3 3 PHYSICIAN T VISIT S GROUP 15 MINUTES OFFICE 33387 LEONA Schmitt OUTPATIEN 3 3 T VISIT 15 MINUTES OFFICE 95966 OSMIN VERNELL OSMIN VERNELL OUTPATIEN 3 3 T VISIT 15 MINUTES OFFICE 48053 OSMIN VERNELL OSMIN VERNELL OUTPATIEN 3 3 T VISIT 15 MINUTES OFFICE 90732 RONY RONY OUTPATIEN 2 2 AMARIS AMARIS T VISIT 25 MINUTES OFFICE 47882 OSMIN VERNELL OSMIN VERNELL OUTPATIEN 2 2 T VISIT 15 MINUTES OFFICE 53541 KALLIE KALLIE OUTPATIEN 2 2 ANTONIA ANTONIA T NEW 20 MINUTES OFFICE 12363 OSMIN VERNELL OSMIN VERNELL OUTPATIEN 2 2 T VISIT 15 MINUTES OFFICE 85328 RONY RONY OUTPATIEN 1 2 AMARIS AMARIS T VISIT 25 MINUTES OFFICE 34514 RONY RONY OUTPATIEN 1 2 AMARIS AMARIS T VISIT 15 MINUTES OFFICE 31552 Oskar Ortiz OSMIN VERNELL OUTPATIEN 1 1 [facility] T VISIT PSC 15 MINUTES OFFICE 90908 RONY RONY OUTPATIEN 1 1 AMARIS AMARIS T VISIT 15 MINUTES OFFICE 16505 RONY RONY CONSULTAT 1 1 AMARIS AMARIS ION NEW/ESTAB PATIENT 60 MIN OFFICE 33368 A Angel Schmitt OUTPATIEN 1 1 [place] T VISIT PSC 15 MINUTES OFFICE 96764 [facility] OUTPATIEN 1 1 [facility] 10 MINUTES OFFICE 10333 A Angel Schmitt OUTPATIEN 1 1 [place] T VISIT PSC 15 MINUTES OFFICE 59977 A Angel Schmitt OUTPATIEN 1 1 [place] T VISIT PSC 15 MINUTES OFFICE 42150 [facility] OUTPAT[place] 1 1 [place] T VISIT ORTHOPAED 15 [facility] MINUTES OFFICE 03158 [facility] OUTPATIEN 1 1 [facility] 15 MINUTES OFFICE 46578 [facility] OUTPATIEN 1 1 [facility] 15 MINUTES OFFICE 47968 [facility] OUTPAT[place] 0 0 [place] T VISIT ORTHOPAED 15 [facility] MINUTES OFFICE 86879 A Angel Schmitt OUTPATIEN 0 0 [place] T VISIT PSC 15 MINUTES HOSPITAL [facility] - 0 0 [facility] OUTPATIEN INC T OFFICE 21487 [facility], OUTPATIEN 0 0 [place] BEE A T VISIT ORTHOPAED 15 [facility] MINUTES OFFICE 76895 [facility] CRU[facility], CONSULTAT 0 0 [place] BEE A ION ORTHOPAED NEW/ESTAB [facility] PATIENT 60 MIN [facility]OSPITAL [facility] - 0 0 [facility] T OFFICE 31457 Oskar FRANCOIS OUTPATIEN 0 0 [facility]ONA Ortiz T VISIT PSC 15 MINUTES OFFICE 75213 A Oskar AYALA OUTPATIEN 0 0 [facility] Ortiz T NEW 30 PSC MINUTES OFFICE 28834 JEFFERY GIL OUTPATIEN 9 9 DON R DON R T VISIT 15 MINUTES EMERGENCY 82399 ARSH 8 8 [facility] T VISIT MODERATE SEVERITY HOSPITAL ARSH - 8 8 [facility] OUTPATIEN INC T OFFICE 08898 JEFFERY GIL OUTPATIEN 8 8 DON R DON R T VISIT 15 MINUTES OFFICE 11378 JEFFERY GIL OUTPATIEN 8 8 DON R DON R T VISIT 15 MINUTES OFFICE 80413 JEFFERY GIL OUTPATIEN 8 8 DON R DON R T VISIT 15 MINUTES HOSPITAL ARSH - 8 8 [facility] 68342 ARSH JAWDI, 8 8 [facility] T VISIT PROF SERV LOW/MODER SEVERITY EMERGENCY 86519 ARSH 8 8 [facility] T VISIT LIMITED/M INOR PROB PERIODIC 10526 [facility]/CO [facility] PREVENTIV 8 8 [facility] EST [facility] PATIENT [facility]ANK ACCT [facility]SH - 8 8 [facility] OFF[facility] 59123 [facility] OUTPATIEN 8 8 [facility] T VISIT [facility] 15 BANK ACCT MINUTES OFFICE [id number] MARISSA ANN OUTPATIEN 8 8 CLARI Sibley NEW 30 MINUTES OFFICE 01009 JEFFERY GIL OUTPATIEN 8 8 DON R DON R T VISIT 15 MINUTES
--- OUTSIDE RECORDS SUMMARY | 2017-09-10 01:38 | External Medical Summary Rpt ---
Author Author , FRANKY WILKINS Address Unknown Phone [email or web address] Immunization Name Date Rout CVX Reac Dose Comm Prov Is Faci e tion ent ider Refu lity Give sed n Tdap 04-2 115 999 Hist H149 No H149 , 3-20 oric Adso 08 al rbed Info rmat ion - Sour ce Unsp ecif ied DTaP 02-1 107 999 Hist H140 No H140 , UF 4-20 oric 00 al Info rmat ion - Sour ce Unsp ecif ied Hosea 02-1 2 999 Hist H140 No H140 o-OP 4-20 oric V 00 al Info rmat ion - Sour ce Unsp ecif ied MMR 02-1 3 999 Hist H140 No H140 4-20 oric 00 al Info rmat ion - Sour ce Unsp ecif ied DTaP 06-0 107 999 Hist H169 No H169 , UF 2-19 oric 97 al Info rmat ion - Sour ce Unsp ecif ied Hib, 06-0 17 999 Hist H169 No H169 UF 2-19 oric 97 al Info rmat ion - Sour ce Unsp ecif ied
--- OUTSIDE RECORDS SUMMARY | 2017-09-10 01:38 | External Medical Summary Rpt ---
Author Author , FRANKY WILKINS Address Unknown Phone Immunization Name Date Rout CVX Reac Dose [...]
--- OUTSIDE RECORDS SUMMARY | 2017-09-10 01:39 | External Medical Summary Rpt ---
Author Author [employer], [employer] Address Unknown Phone Unavailable Results AFP Tetra Observa Value Referen Units Interpr Notes Date tion ce etation Range Results REPORT No No No No Sep 13 informa informa informa informa 2017 tion in tion in tion in tion in 1:27 PM source source source source data data data data Alpha-1-F No No No No Sep 13 etoprotei informati informati informati informati 2016 1:27 n on in on in on in on in PM [Mass/vol source source source source ume] in data data data data Serum or Plasma Alpha-1-F No No No No Sep 13 etoprotei informati informati informati informati 2017 1:27 n on in on in on in on in PM [Multiple source source source source of the data data data data median] adjusted in Serum or Plasma Choriogon No No No No Sep 13 adotropin informati informati informati informati 2017 1:27 on in on in on in on in PM [Units/vo source source source source lume] in data data data data Serum or Plasma Choriogon No No No No Sep 13 adotropin informati informati informati informati 2016 1:27 on in on in on in on in PM [Multiple source source source source of the data data data data median] adjusted in Serum or Plasma Estriol.u No No No No Sep 13 nconjugat informati informati informati informati 2016 1:27 ed on in on in on in on in PM [Mass/vol source source source source ume] in data data data data Serum or Plasma Estriol.u No No No No Sep nconjugat informati informati informati informati 2016 1:27 ed on in on in on in on in PM [Multiple source source source source of the data data data data median] adjusted in Serum or Plasma Inhibin A No No No No Sep 13 informati informati informati informati 2017 1:27 [Mass/vol on in on in on in on in PM ume] in source source source source Serum data data data data Inhibin A No No No No Sep 13 informati informati informati informati 2017 1:27 [Multiple on in on in on in on in PM of the source source source source median] data data data data adjusted in Serum Neural No No No No Sep 13 tube informati informati informati informati 2017 1:27 defect on in on in on in on in PM risk in source source source source Fetus data data data data Trisomy No No No No Sep 13 21 risk informati informati informati informati 2017 1:27 in Fetus on in on in on in on in PM source source source source data data data data Second SCREEN No No No No Sep 13 trimest NEGATIV informa informa informa informa 2017 er quad E tion in tion in tion in tion in 1:27 PM source source source source materna data data data data l screen [interp retatio n] in Serum Narrati ve Trisomy No No No No Sep 13 21 risk informati informati informati informati 2017 1:27 based on on in on in on in on in PM maternal source source source source age in data data data data Fetus Trisomy No No No No Sep 13 18 risk informati informati informati informati 2017 1:27 in Fetus on in on in on in on in PM source source source source data data data data Trisomy No No No No Sep 13 18 risk informati informati informati informati 2017 1:27 based on on in on in on in on in PM maternal source source source source age in data data data data Fetus Second SCREEN No No No No Sep 13 trimest NEGATIV informa informa informa informa 2017 er quad E tion in tion in tion in tion in 1:27 PM source source source source materna data data data data l screen [interp retatio n] in Serum Narrati ve Comment COMMENT No No No THIS Sep 13 s: S informa informa informa RESULT 2017 tion in tion in tion in IS 1:27 PM source source source SCREEN data data data NEGATIV E FOR OSB AND DOWNSYN DROME. TRISOMY 18 RISKS CANNOT BE DETERMI MEHREEN FOR TWINPRE GNANCIE S. THE AFP MOM AND PATIENT SPECIFI C RISKS ARECALC ULATED BASED ON GESTATI ONAL AGE AND THE CLINICA LINFORM ATION PROVIDE D. SCREENI NG EFFICIE NCY IS DIMINIS HED INTWIN PREGNAN CIES. THIS TEST IDENTIF IES UP TO 48% OF OPENNEU RAL TUBE DEFECTS . CLOSED NEURAL TUBE DEFECTS AND SOMEOPE N DEFECTS MAY NOT BE DETECTE D BY THIS TEST. THE DETECTI ONRATE FOR DOWN SYNDROM E FOR TWIN PREGNAN CIES HAS NOTBEEN DETERMI MEHREEN FOR FOUR MARKERS , BUT IS ATLEAST 50% BASEDON TRIPLE SCREEN DATA. THE JAYCOB N COLLEGE OF OBSTETR ICIANSA ND GYNECOL OGISTS RECOMME NDS AMNIOCE NTESIS BE OFFERED TOWOMEN AGE 35 AND OLDER. RECALCU LATIONS ARE NOT RECOMME NDEDWHE N GESTATI ONAL DATING BY LMP AND ULTRASO UND ARE WITHIN 10DAYS. Gestation No No No No Sep 13 al age informati informati informati informati 2017 1:27 on in on in on in on in PM source source source source data data data data Gestati DAVID No No No No Sep 13 onal informa informa informa informa 2017 age tion in tion in tion in tion in 1:27 PM method source source source source data data data data Age at No No No No Sep 13 delivery informati informati informati informati 2017 1:27 on in on in on in on in PM source source source source data data data data Mother' CAUCASI No No No No Sep 13 s race AN informa informa informa informa 2017 tion in tion in tion in tion in 1:27 PM source source source source data data data data Body No No No No Sep 13 weight informati informati informati informati 2017 1:27 on in on in on in on in PM source source source source data data data data Insulin YES No No No No Sep 13 informa informa informa informa 2017 depende tion in tion in tion in tion in 1:27 PM nt source source source source diabete data data data data s mellitu s [Presen ce] Multipl TWINS No No No No Sep 13 e informa informa informa informa 2017 preganc tion in tion in tion in tion in 1:27 PM y source source source source data data data data Blood group antibody screen [Presence] in Serum or Plasma Observa Value Referen Units Interpr Notes Date ti ce etation Range Blood NEGATIV NEGATIV No No No Jun 24 group E E informa informa informa 2016 antibod tion in in in 10:35 y source source source AM screen data data data [Presen ce] in Serum or Plasma Rh [Type] in Blood Observa Value Referen Units Interpr Notes Date ce etation Range Rh POSITIV No No No No Jun 24 [Type] E informa informa informa informa 2016 in tion in tion in ti in ti in 10:35 Blood source source source source AM data data data data ABO group [Type] in Blood Observa Value Referen Units Interpr Notes Date ce etation Range ABO A No No No No Jun 24 group informa informa informa informa 2016 [Type] tion in ti in in in 10:35 in source source source source AM Blood data data data data Thyrotropin [Units/volume] in Serum or Plasma Observa Value Referen Units Interpr Notes ce etation Range Thyrotrop 0.358 - uIU/ml Normal No Jun 24 in 3.740 inform2016 [Units/vo on in 10:35 AM lume] in source Serum or data Plasma CBC W Auto Differential panel in Blood Observa Value Referen Units Interpr Notes ce etation Range Basophils 0 - 0.2 K/MM3 Normal No Jun 242016 [#/volume on in 10:35 AM ] in source Blood by data Automated count Basophils 0.1 - 2.0 % Normal No Jun 24 / informati 2016 leukocyte on in 10:35 AM s in source Blood by data Automated count Eosinophi 0.0 - 0.4 K/mm3 Normal No Jun 24 ls informati 2016 [#/volume on in 10:35 AM ] in source Blood by data Automated count Eosinophi 0.1 - % Normal No Jun 24 ls/100 12.0 informati 2016 leukocyte on in 10:35 AM s in source Blood by data Automated count Granulocy 1.8 - 7.8 K/mm3 Normal No Jun 24 addison informati 2016 [#/volume on in 10:35 AM ] in source Blood by data Automated count Granulocy 37.0 - % Normal No Jun 24 addison/100 80.0 informati 2016 leukocyte on in 10:35 AM s in source Blood by data Automated count Hematocri 37.0 - % Normal No Jun 24 t [Volume 47.0 informati 2016 on in 10:35 AM Fraction] source of Blood data Hemoglobi 12.2 - g/dL Normal No Jun 24 n 16.2 informati 2016 [Mass/vol on in 10:35 AM ume] in source Blood data Lymphocyt 0.7 - 4.5 K/mm3 Normal No Jun 24 es inform2016 [#/volume on in 10:35 AM ] in source Unspecifi data ed specimen by Automated count Lymphocyt 10 - 50.0 % Normal No Jun 24 es informati 2016 [#/volume on in 10:35 AM ] in source Unspecifi data ed specimen by Automated count Erythrocy 27 - 31.2 pg Normal No Jun 24 te mean 2016 corpuscul on in 10:35 AM ar source hemoglobi data n [Entitic mass] Erythrocy 31.8 - g/dl Normal No Jun 24 te mean 35.4 inform2016 corpuscul on in 10:35 AM ar source hemoglobi data n concentra tion [Mass/vol ume] by Automated count Erythrocy 82.2 - fl Normal No Jun 24 te mean 97.8 inform2016 corpuscul on in 10:35 AM ar volume source [Entitic data volume] by Automated count Monocytes 0.1 - 1.0 K/mm3 Normal No Jun 242016 [#/volume on in 10:35 AM ] in source Blood by data Automated count Monocytes 1.7 - 9.3 % Normal No Jun 24 /100 2016 leukocyte on in 10:35 AM s in source Blood by data Automated count Platelet 7.4 - fl Normal No Jun 24 mean 10.4 2016 volume on in 10:35 AM [Entitic source volume] data in Blood by Automated count Platelets 142 - 424 K/mm3 Normal No Jun 24 informati 2016 [#/volume on in 10:35 AM ] in source Blood data Erythrocy 4.2 - 5.4 M/mm3 Normal No Jun 24 addison informati 2016 [#/volume on in 10:35 AM ] in source Amniotic data fluid Erythrocy 11.5 - % Normal No Jun 24 te 17.5 2016 distribut on in 10:35 AM ion width source [Entitic data volume] by Automated count Leukocyte 4.8 - K/MM3 Normal No Jun 24 s 10.8 informati 2016 [#/volume on in 10:35 AM ] in source Blood data Drugs identified in Urine by Screen method Observa Value Referen Units Interpr Notes Date tion ce etation Range Positive urine drug screen samples are stored for 7 days. Contact the Lab if confirmation of positives is needed. Ampheta NEGATIV <1000 ng/mL No No Jun 24 mine E informa informa 2017 [Presen tion in tion in ce] in source source Urine data data by Screen method Barbitura <200 ng/mL No No Jun 24 addison informati informati 2016 [Mass/vol on in on in ume] in source source Urine by data data Screen method Benzodiaz 200 ng/mL ng/mL No No Jun 24 epines informati informati 2016 [Mass/vol on in on in ume] in source source Serum or data data Plasma by Screen method Cocaine <300 ng/g No No Jun 24 [Mass/vol informati informati 2016 ume] in on in on in Unspecifi source source ed data data specimen Methadone <300 ng/mL No No Jun 24 informati informati 2017 [Mass/vol on in on in ume] in source source Unspecifi data data ed specimen Opiates <300 ng/mL No No Jun 24 [Mass/vol informati informati 2016 ume] in on in on in Unspecifi source source ed data data specimen Phencycli <25 ng/mL No No Jun 24 dine informati informati 2016 [Mass/vol on in on in ume] in source source Unspecifi data data ed specimen 11-Hydr NEGATIV <50 ng/mL No No Jun 24 oxy E informa informa 2017 delta-9 tion in tion in source source tetrahy data data drocann abinol [Presen ce] in Unspeci fied specime n Basic metabolic panel in Blood Observa Value Referen Units Interpr Notes Date tion ce etation Range Urea 7 - 18 mg/dL Normal No Jun 17 nitrogen informati 2016 8:43 [Mass/vol on in AM ume] in source Serum or data Plasma Calcium 8.5 - mg/dL Normal No Jun 17 [Mass/vol 10.1 informati 2016 8:43 ume] in on in AM Serum or source Plasma data Chloride 98 - 107 mmoL/L High No Jun 17 [Moles/vo informati 2016 8:43 lume] in on in AM Serum or source Plasma data Carbon 21.0 - mmoL/L Normal No Jun 17 dioxide, 32.0 informati 2016 8:43 total on in AM [Moles/vo source lume] in data Serum or Plasma Creatinin 0.55 - mg/dL Low No Jun 17 e 1.02 informati 2016 8:43 [Mass/vol on in AM ume] in source Serum or data Plasma Creatinin 50 - 200 ML/MIN High No Jun 17 e renal informati 2016 8:43 clearance on in AM source predicted data by Cockcroft -Gault formula Estimated 59- ML/MIN No REFERENCE Jun 17 informati RANGE: 2017 8:43 glomerula on in >60 AM r source ML/MIN/1. filtratio data 73 SQUARE n rate METERSIf (GF this patient is -A merican, then multiply theresult by 1.210. Glucose 74 - 106 mg/dL Normal No Jun 17 [Mass/vol informati 2016 8:43 ume] in on in AM Serum or source Plasma data Potassium 3.5 - 5.1 mmoL/L Normal No Jun 17 informati 2016 8:43 [Moles/vo on in AM lume] in source Serum or data Plasma Sodium 136 - 145 mmoL/L Normal No Jun 17 [Moles/vo informati 2016 8:43 lume] in on in AM Serum or source Plasma data Rh [Type] in Blood Observa Value Referen Units Interpr Notes Date tion ce etation Range Rh POSITIV No No No No Jun 17 [Type] E informa informa informa informa 2016 in tion in tion in tion in tion in 8:43 AM Blood source source source source data data data data CBC W Auto Differential panel in Blood Observa Value Referen Units Interpr Notes Date tion ce etation Range Basophils 0 - 0.2 K/MM3 Normal No Jun 17 informati 2016 8:43 [#/volume on in AM ] in source Blood by data Automated count Basophils 0.1 - 2.0 % Normal No Jun 17 /100 informati 2016 8:43 leukocyte on in AM s in source Blood by data Automated count Eosinophi 0.0 - 0.4 K/mm3 Normal No Jun 17 ls informati 2016 8:43 [#/volume on in AM ] in source Blood by data Automated count Eosinophi 0.1 - % Normal No Jun 17 ls/100 12.0 informati 2016 8:43 leukocyte on in AM s in source Blood by data Automated count Granulocy 1.8 - 7.8 K/mm3 Normal No Jun 17 addison informati 2016 8:43 [#/volume on in AM ] in source Blood by data Automated count Granulocy 37.0 - % Normal No Jun 17 addison/100 80.0 informati 2016 8:43 leukocyte on in AM s in source Blood by data Automated count Hematocri 37.0 - % Normal No Jun 17 t [Volume 47.0 informati 2016 8:43 on in AM Fraction] source of Blood data Hemoglobi 12.2 - g/dL Normal No Jun 17 n 16.2 informati 2016 8:43 [Mass/vol on in AM ume] in source Blood data Lymphocyt 0.7 - 4.5 K/mm3 Normal No Jun 17 es informati 2016 8:43 [#/volume on in AM ] in source Unspecifi data ed specimen by Automated count Lymphocyt 10 - 50.0 % Normal No Jun 17 es informati 2016 8:43 [#/volume on in AM ] in source Unspecifi data ed specimen by Automated count Erythrocy 27 - 31.2 pg Normal No Jun 17 te mean informati 2016 8:43 corpuscul on in AM ar source hemoglobi data n [Entitic mass] Erythrocy 31.8 - g/dl Normal No Jun 17 te mean 35.4 informati 2016 8:43 corpuscul on in AM ar source hemoglobi data n concentra tion [Mass/vol ume] by Automated count Erythrocy 82.2 - fl Normal No Jun 17 te mean 97.8 informati 2016 8:43 corpuscul on in AM ar volume source [Entitic data volume] by Automated count Monocytes 0.1 - 1.0 K/mm3 Normal No Jun 17 informati 2016 8:43 [#/volume on in AM ] in source Blood by data Automated count Monocytes 1.7 - 9.3 % Normal No Jun 17 / informati 2016 8:43 leukocyte on in AM s in source Blood by data Automated count Platelet 7.4 - fl Normal No Jun 17 mean 10.4 informati 2016 8:43 volume on in AM [Entitic source volume] data in Blood by Automated count Platelets 142 - 424 K/mm3 No No Jun 17 informati informati 2016 8:43 [#/volume on in on in AM ] in source source Blood data data Erythrocy 4.2 - 5.4 M/mm3 Normal No Jun 17 addison informati 2016 8:43 [#/volume on in AM ] in source Amniotic data fluid Erythrocy 11.5 - % Normal No Jun 17 te 17.5 informati 2016 8:43 distribut on in AM ion width source [Entitic data volume] by Automated count Leukocyte 4.8 - K/MM3 Normal No Jun 17 s 10.8 informati 2016 8:43 [#/volume on in AM ] in source Blood data Urinalysis dipstick W Reflex Microscopic panel in Urine Observa Value Referen Units Interpr Notes Date tion ce etation Range Appeara CLOUDY CLEAR No No No Jun 17 nce of informa informa informa 2016 Urine tion in tion in tion in 7:55 AM source source source data data data Bacteri 2+ O No No No Jun 17 a informa informa informa 2016 [Presen tion in tion in tion in 7:55 AM ce] in source source source Urine data data data sedimen t by Light microsc opy Bilirub NEGATIV NEG No No No Jun 17 in E informa informa informa 2016 [Presen tion in tion in tion in 7:55 AM ce] in source source source Urine data data data by Test strip Erythro NEGATIV NEG No No No Jun 17 cytes E informa informa informa 2016 [Presen tion in tion in tion in 7:55 AM ce] in source source source Urine data data data Color YELLOW YELLOW No No No Jun 17 of informa informa informa 2017 Urine tion in tion in tion in 7:55 AM source source source data data data Glucose NEG No No No Jun 17 [Mass/vol informati informati informati 2017 7:55 ume] in on in on in on in AM Urine by source source source Test data data data strip Ketones NEGATIV NEG mg/dL No No Jun 17 E informa informa 2016 [Presen tion in tion in 7:55 AM ce] in source source Urine data data by Automat ed test strip Mucus NEGATIV NEG No No No Jun 17 [Presen E informa informa informa 2016 ce] in tion in tion in tion in 7:55 AM Urine source source source sedimen data data data t by Light microsc opy Mucus 2+ OCC No No No Jun 17 [Presen informa informa informa 2016 ce] in tion in tion in tion in 7:55 AM Urine source source source sedimen data data data t by Light microsc opy Nitrite NEGATIV NEG No No No Jun 17 E informa informa informa 2016 [Presen tion in tion in tion in 7:55 AM ce] in source source source Urine data data data by Test strip pH of 5.0 - 8.5 No Normal No Jun 17 Urine informati informati 2016 7:55 on in on in AM source source data data Protein NEG mg/dL No No Jun 17 [Mass/vol informati informati 2016 7:55 ume] in on in on in AM Urine by source source Automated data data test strip Specific 1.005 - No Normal No Jun 17 gravity 1.030 informati informati 2016 7:55 of Urine on in on in AM source source data data Epithel 5-10 0 - 5 #/hpf No No Jun 17 ial informa informa 2017 cells.s tion in tion in 7:55 AM quamous source source data data [Presen ce] in Urine sedimen t by Microsc opy high power field Urobili 2.0 NEG E.U./dL No No Jun 17 nogen informa informa 2016 [Presen tion in tion in 7:55 AM ce] in source source Urine data data by Test strip Leukocy [3 O wbc/hpf No No Jun 17 addison wbc/hpf informa informa 2016 [#/volu ; 5 tion in tion in 7:55 AM me] in wbc/hpf source source Urine ] data data Urinalysis dipstick W Reflex Microscopic panel in Urine Observa Value Referen Units Interpr Notes Date tion ce etation Range Appeara CLOUDY CLEAR No No No Jun 17 nce of informa informa informa 2017 Urine tion in tion in tion in 7:55 AM source source source data data data Bilirub NEGATIV NEG No No No Jun 17 in E informa informa informa 2016 [Presen tion in tion in tion in 7:55 AM ce] in source source source Urine data data data by Test strip Erythro NEGATIV NEG No No No Jun 17 cytes E informa informa informa 2016 [Presen tion in tion in tion in 7:55 AM ce] in source source source Urine data data data Color YELLOW YELLOW No No No Jun 17 of informa informa informa 2017 Urine tion in tion in tion in 7:55 AM source source source data data data Glucose NEG No No No Jun 17 [Mass/vol informati informati informati 2016 7:55 ume] in on in on in on in AM Urine by source source source Test data data data strip Ketones NEGATIV NEG mg/dL No No Jun 17 E informa informa 2016 [Presen tion in tion in 7:55 AM ce] in source source Urine data data by Automat ed test strip Mucus NEGATIV NEG No No No Jun 17 [Presen E informa informa informa 2016 ce] in tion in tion in tion in 7:55 AM Urine source source source sedimen data data data t by Light microsc opy Nitrite NEGATIV NEG No No No Jun 17 E informa informa informa 2016 [Presen tion in tion in tion in 7:55 AM ce] in source source source Urine data data data by Test strip pH of 5.0 - 8.5 No Normal No Jun 17 Urine informati informati 2016 7:55 on in on in AM source source data data Protein NEG mg/dL No No Jun 17 [Mass/vol informati informati 2016 7:55 ume] in on in on in AM Urine by source source Automated data data test strip Specific 1.005 - No Normal No Jun 17 gravity 1.030 informati informati 2016 7:55 of Urine on in on in AM source source data data Urobili 2.0 NEG E.U./dL No No Jun 17 nogen informa informa 2016 [Presen tion in tion in 7:55 AM ce] in source source Urine data data by Test strip CHLAMYDIA AND GONORRHEA TESTING Observa Value Referen Units Interpr Notes Date tion ce etation Range COLLECT A. No No No No Jan 12 OR GHISLAINE, informa informa informa informa 2015 RN tion in tion in tion in tion in 8:00 AM source source source source data data data data ETHNICI WHITE, No No No No Jan 12 TY NON-HIS informa informa informa informa 2015 PANIC tion in tion in tion in tion in 8:00 AM source source source source data data data data KIT No No No No Jan 12 EXPIRAT 5 informa informa informa informa 2015 ION tion in tion in tion in tion in 8:00 AM DATE source source source source data data data data SYMPTOM YES No No No No Jan 12 S informa informa informa informa 2015 tion in tion in tion in tion in 8:00 AM source source source source data data data data REASON VOLUNTE No No No No Jan 12 FOR ER/MEDI informa informa informa informa 2015 REQUEST GRISELDA tion in tion in tion in tion in 8:00 AM PROBLEM source source source source data data data data SPECIME URINE No No No No Jan 12 N informa informa informa informa 2015 SOURCE tion in tion in tion in tion in 8:00 AM source source source source data data data data PREGNAN NO No No No No Jan 12 T informa informa informa informa 2015 tion in tion in tion in tion in 8:00 AM source source source source data data data data CHART [id number]- [id number] No No No Jan 12 NUMBER [id number] informa informa informa informa 2015 tion in tion in tion in tion in 8:00 AM source source source source data data data data Chlamyd NEGATIV No No No NEGATIV Jan 12 ia E informa informa informa E 2015 trachom tion in tion in tion in RESULT= 8:00 AM atis source source source WITHIN rRNA data data data NORMAL [Presen ce] in LIMITSP Unspeci OSITIVE fied specime RESULT= n by Probe & ABNORMA target LEQUIVO GRISELDA amplifi RESULT= cation method INDETER MINATEU NSATISF ACTORY RESULT= INVALID Neisser NEGATIV No No No NEGATIV Jan 12 ia E informa informa informa E 2015 gonorrh tion in tion in tion in RESULT= 8:00 AM oeae source source source WITHIN rRNA data data data NORMAL [Presen ce] in LIMITSP Unspeci OSITIVE fied specime RESULT= n by Probe & ABNORMA target LEQUIVO GRISELDA amplifi RESULT= cation method INDETER MINATEU NSATISF ACTORY RESULT= INVALID THE APTIMA COMBO 2 ASSAY IS NOT INTENDE D FOR THE EVALUAT ION OF SUSPECT EDSEXUA L ABUSE OR FOR OTHER MEDICO- LEGAL INDICAT IONS. FOR THOSE PATIENT S FORWHOM A FALSE POSITIV E RESULT MAY HAVE ADVERSE PSYCHO- SOCIAL IMPACT, [facility] RET[facility]I NG.\.br \This report contain s patient informa tion that must be protect ed in accorda nce with the Health Ins[employer] ce Portabi lity and Account ability Act. CHLAMYDIA AND GONORRHEA TESTING Observa Value Referen Units Interpr Notes Date tion ce etation Range COLLECT A. No No No No Jan 12 OR GHISLAINE, informa informa informa informa 2015 RN tion in tion in tion in tion in 8:00 AM source source source source data data data data ETHNICI WHITE, No No No No Jan 12 TY NON-HIS informa informa informa informa 2014 PANIC tion in tion in tion in tion in 8:00 AM source source source source data data data data KIT No No No No Jan 12 EXPIRAT 5 informa informa informa informa 2015 ION tion in tion in tion in tion in 8:00 AM DATE source source source source data data data data SYMPTOM YES No No No No Jan 12 S informa informa informa informa 2015 tion in tion in tion in tion in 8:00 AM source source source source data data data data REASON VOLUNTE No No No No Jan 12 FOR ER/MEDI informa informa informa informa 2015 REQUEST GRISELDA tion in tion in tion in tion in 8:00 AM PROBLEM source source source source data data data data SPECIME URINE No No No No Jan 12 N informa informa informa informa 2015 SOURCE tion in tion in tion in tion in 8:00 AM source source source source data data data data PREGNAN NO No No No No Jan 12 T informa informa informa informa 2015 tion in tion in tion in tion in 8:00 AM source source source source data data data data CHART [id number]- [id number] No No No Jan 12 NUMBER [id number] informa informa informa informa 2015 tion in tion in tion in tion in 8:00 AM source source source source data data data data Chlamyd Pending No No No No Jan 12 ia informa informa informa informa 2015 trachom tion in tion in tion in tion in 8:00 AM atis source source source source rRNA data data data data [Presen ce] in Unspeci fied specime n by Probe & target amplifi cation method Neisser Pending No No No \.br\Jan 12 ia informa informa informa is 2015 gonorrh tion in tion in tion in report 8:00 AM oeae source source source contain rRNA data data data s [Presen patient ce] in Unspeci informa fied tion specime that n by must be Probe & target protect ed in amplifi accorda cation nce method with the Health Insuran ce Portabi lity and Account ability Act. CHLAMYDIA AND GONORRHEA TESTING Observa Value Referen Units Interpr Notes Date tion ce etation Range COLLECT PT/ D. No No No No Sep 30 OR BRADFOR informa informa informa informa 2014 D RN tion in tion in tion in tion in 11:00 source source source source AM data data data data ETHNICI WHITE, No No No No Sep 30 TY NON-HIS informa informa informa informa 2014 PANIC tion in tion in tion in tion in 11:00 source source source source AM data data data data KIT 03-31-2 No No No No Sep 30 EXPIRAT 015 informa informa informa informa 2014 ION tion in tion in tion in tion in 11:00 DATE source source source source AM data data data data SYMPTOM NO No No No No Sep 30 S informa informa informa informa 2014 tion in tion in tion in tion in 11:00 source source source source AM data data data data REASON REVISIT No No No No Sep 30 FOR /ANNUAL informa informa informa informa 2014 REQUEST FAMILY tion in tion in tion in tion in 11:00 source source source source AM PLANNIN data data data data G VISIT SPECIME URINE No No No No Sep 30 N informa informa informa informa 2014 SOURCE tion in tion in tion in tion in 11:00 source source source source AM data data data data PREGNAN NO No No No No Aug 30 T informa informa informa informa 2014 tion in tion in tion in tion in 11:00 source source source source AM data data data data CHART NA No No No No Aug 30 NUMBER informa informa informa informa 2014 tion in tion in tion in tion in 11:00 source source source source AM data data data data Chlamyd POSITIV No No No NEGATIV Aug 30 ia E informa informa informa E 2014 trachom tion in tion in tion in RESULT= 11:00 atis source source source WITHIN AM rRNA data data data NORMAL [Presen ce] in LIMITSP Unspeci OSITIVE fied specime RESULT= n by Probe & ABNORMA target LEQUIVO GRISELDA amplifi RESULT= cation method INDETER MINATEU NSATISF ACTORY RESULT= INVALID Neisser NEGATIV No No No NEGATIV Sep 30 ia E informa informa informa E 2014 gonorrh tion in tion in tion in RESULT= 11:00 oeae source source source WITHIN AM rRNA data data data NORMAL [Presen ce] in LIMITSP Unspeci OSITIVE fied specime RESULT= n by Probe & ABNORMA target LEQUIVO GRISELDA amplifi RESULT= cation method INDETER MINATEU NSATISF ACTORY RESULT= INVALID THE APTIMA COMBO 2 ASSAY IS NOT INTENDE D FOR THE EVALUAT ION OF SUSPECT EDSEXUA L ABUSE OR FOR OTHER MEDICO- LEGAL INDICAT IONS. FOR THOSE PATIENT S FORWHOM A FALSE POSITIV E RESULT MAY HAVE ADVERSE PSYCHO- SOCIAL IMPACT, [facility].\.br \This report contain s patient informa tion that must be protect ed in accorda nce with the Health Insuran ce Portabi lity and Account ability Act. CHLAMYDIA AND GONORRHEA TESTING Observa Value Referen Units Interpr Notes Date tion ce etation Range COLLECT PT/ D. No No No No Aug 30 OR BRADFOR informa informa informa informa 2014 D RN tion in tion in tion in tion in 11:00 source source source source AM data data data data ETHNICI WHITE, No No No No Aug 30 TY NON-HIS informa informa informa informa 2014 PANIC tion in tion in tion in tion in 11:00 source source source source AM data data data data KIT 03-31-2 No No No No Aug 30 EXPIRAT 015 informa informa informa informa 2014 ION tion in tion in tion in tion in 11:00 DATE source source source source AM data data data data SYMPTOM NO No No No No Aug 30 S informa informa informa informa 2014 tion in tion in tion in tion in 11:00 source source source source AM data data data data REASON REVISIT No No No No Aug 30 FOR /ANNUAL informa informa informa informa 2014 REQUEST FAMILY tion in tion in tion in tion in 11:00 source source source source AM PLANNIN data data data data G VISIT SPECIME URINE No No No No Aug 30 N informa informa informa informa 2014 SOURCE tion in tion in tion in tion in 11:00 source source source source AM data data data data PREGNAN NO No No No No Aug 30 T informa informa informa informa 2014 tion in tion in tion in tion in 11:00 source source source source AM data data data data CHART NA No No No No Aug 30 NUMBER informa informa informa informa 2014 tion in tion in tion in tion in 11:00 source source source source AM data data data data Chlamyd Pending No No No No Aug 30 ia informa informa informa informa 2014 trachom tion in tion in tion in tion in 11:00 atis source source source source AM rRNA data data data data [Presen ce] in Unspeci fied specime n by Probe & target amplifi cation method Neisser Pending No No No \.br\Th Aug 30 ia informa informa informa is 2014 gonorrh tion in tion in tion in report 11:00 oeae source source source contain AM rRNA data data data s [Presen patient ce] in Unspeci informa fied tion specime that n by must be Probe & target protect ed in amplifi accorda cation nce method with the Health Insuran ce Portabi lity and Account ability Act.
--- OUTSIDE RECORDS SUMMARY | 2017-09-10 01:39 | External Medical Summary Rpt ---
[...] MAY HAVE ADVERSE PSYCHO- SOCIAL IMPACT, [facility] [place] [facility].\.br \This report contain s [...] MAY HAVE ADVERSE PSYCHO- SOCIAL IMPACT, [facility] [place] [facility] RET[facility] NG.\.br \This report contain s [...]
== END 2017-08-18 00:36 | disposition home or self-care (01) ==
LOC: ER 22:37
PROVIDERS: Emergency Medicine
DX: O99.512 Diseases of the respiratory system complicating pregnancy, second trimester (principal); O30.002 Twin pregnancy, unspecified number of placenta and unspecified number of amniotic sacs, second trimester; O16.2 Unspecified maternal hypertension, second trimester; Z3A.17 17 weeks gestation of pregnancy; J45.909 Unspecified asthma, uncomplicated

== ENCOUNTER → 2017-08-27 | Outpatient (CLI) | payer MEDICAID ==
[~2017-08-27] MED LIST changes: +PRENATAL PLUS1 TA1 PO
--- NOTE | 2017-08-27 18:36 | RADIOLOGY REPORT PS360 ---
FOOT-LT-3 VIEWS HISTORY: LT LATERAL FOOT PAIN, SWELLING ORDERING PHYSICIAN: Judy Keith APRN PATIENT AGE: 22 years COMPARISON: None FINDINGS: No fracture or dislocation. No lytic or blastic change. There is normal mineralization.. The joint spaces are well-preserved. No significant degenerative/arthritic changes. No erosive changes evident. There is a small sclerotic focus in the head of the fourth metatarsal consistent with a small bone island. No radio opaque foreign bodies IMPRESSION: Negative left foot, no acute finding
== END ==
LOC: RAD 16:34
DX: R52 Pain, unspecified (principal); M79.672 Pain in left foot; M79.89 Other specified soft tissue disorders

== ENCOUNTER → 2017-09-04 | Outpatient (CLI) | payer MEDICAID ==
--- NOTE | 2017-09-07 10:14 | RADIOLOGY REPORT PS360 ---
US PREG COMP COMPARISON: Ultrasound 06/17/2017 HISTORY: Known twin , anatomy scan TECHNIQUE: Transabdominal imaging FINDINGS: Fetus a and fetus B are both in cephalic presentation. The cervix measures 5.26 cm and is closed. There appears be a single posterior placenta and only definitely one gestational sac with no definite membrane is identified. Both fetus a and fetus B are female. General anatomical scan of each fetus is unremarkable. Fetus a heart rate is 1 40 bpm and fetus B heart rate is 1 42 bpm. Measurements on fetus a showed the BPD to be 4.82 cm equaling 20 weeks and 5 days and L left the measures 6.23 centers equaling 20 weeks and 0 days. The head circumference is 17.5 cm equaling 20 weeks 1 day and the abdominal conference is 15.2 cm equaling 20 weeks and 3 days. The femur length is 3.38 cm equaling 20 weeks 5 days. The cerebellum measures 1.96 cm equaling 20 weeks 1 day and the humerus is 3.22 centers equaling 20 weeks and 6 days. Fetus B measurements show the BPD to be 4.68 cm equaling 20 weeks and 2 days, OFD measures 6.08 cm equaling 20 weeks 4 days. The head circumference is 17.04 cm equaling 19 weeks 5 days and the abdominal circumference is 15.7 cm equaling 20 weeks and 6 days. The femur length is 3.31 cm equaling 20 weeks 3 days. The cerebellum measurement is 1.97 cm equaling 20 weeks 1 day and the humerus is 3.28 cm equaling 21 weeks 1 day. There appears be adequate amount of amniotic fluid. IMPRESSION: Apparent monochorionic monoamniotic twin with fetus a estimated age 20 weeks 4 days and fetus B 20 weeks and 3 days
== END ==
LOC: RAD 09:18
DX: O09.71 Supervision of high risk pregnancy due to social problems, first trimester (principal); O30.001 Twin pregnancy, unspecified number of placenta and unspecified number of amniotic sacs, first trimester

== ENCOUNTER 2017-10-20 14:09 | Outpatient (CLI) | payer MEDICAID ==
[~2017-10-20] VITALS: Ht 172.7 cm; Wt 113.9 kg
[2017-10-20 14:27] VITALS: BP 148/80
[2017-10-20] MEDS ORDERED: ZOFRAN4 MG PO (14:36)
== END 2017-10-20 15:00 | disposition home or self-care (01) ==
LOC: OBOUT 14:09 → OB 14:09 → OBOUT 15:00
DX: O26.92 Pregnancy related conditions, unspecified, second trimester (principal); Z3A.26 26 weeks gestation of pregnancy

== ENCOUNTER 2017-10-21 12:55 | Outpatient (CLI) | payer MEDICAID ==
[~2017-10-21] VITALS: Ht 172.7 cm; Wt 99.8 kg
[~2017-10-21 12:55] MED LIST changes: +ZOFRAN4 MG PO
[2017-10-21 14:25] VITALS: BP 145/76
[2017-10-21 14:28] LABS: 1 HR URINE GLUCOSE 1+ mg/ml
== END 2017-10-21 14:45 | disposition home or self-care (01) ==
LOC: LAB 12:55 → OBOUT 12:55 → OB 14:18 → OBOUT 14:45
PROVIDERS: Obstetrics & Gynecology
DX: O26.92 Pregnancy related conditions, unspecified, second trimester (principal)

== ENCOUNTER → 2017-10-22 | Outpatient (CLI) | payer MEDICAID ==
[2017-10-22 14:19] LABS: LYMPH # 1.9 K/mm3 (0.7-4.5)
[2017-10-22 15:40] LABS: NEUTROPHILS 78 % (42-76)
== END ==
LOC: LAB 13:50
PROVIDERS: Obstetrics & Gynecology
DX: Z13.1 Encounter for screening for diabetes mellitus (principal)